=== PATIENT | female | born 1970 | race African-American/Black ===

== ENCOUNTER 2019-01-04 22:30 | Inpatient (IN) | payer BC ==
[~2019-01-04] VITALS: Ht 172.7 cm; Wt 73.0 kg
--- NOTE | 2019-01-04 23:00 | NUR ---
ED Nurse Note: Recieved pt from home, here ith c/o lower abdominal pain at 10/10 for past
--- NOTE | 2019-01-04 23:01 | NUR ---
ED Nurse Note: Recieved pt from home, here with c/o lower abdominal paina t 10 for past 3 days, pt has hx of endometriosis, also with nausea and vomiting and appetite changes, pt is lying in bed in like position due to pain, pt immediately gowned and palced on cardiac monitoring, iv line started and labs drawn, will resume care as ordered and closely monitor.
[2019-01-04] MEDS ORDERED: HYDROmorphone 1mg/ml Carpuject IVP ONE (23:15)
[2019-01-05] VITALS (10 sets, daily range): BP systolic 105–130; BP diastolic 69–82
[2019-01-05 00:28] LABS: HEMATOCRIT 25.8 % (37.0-47.0); HEMOGLOBIN 8.2 G/DL (12.0-16.0); MEAN CORPUSCULAR VOLUME 72 FL (80-99); PLATELET COUNT 370 K/UL (150-450); RED BLOOD COUNT 3.61 M/UL (4.20-5.40); RED CELL DISTRIBUTION WIDTH 19.2 % (11.6-14.8); WHITE BLOOD COUNT 18.4 K/UL (4.8-10.8)
[2019-01-05 00:32] LABS: ANION GAP 12 mmol/L (5-15); BLOOD UREA NITROGEN 12 mg/dL (7-18); CALCIUM 9.2 MG/DL (8.5-10.1); CARBON DIOXIDE 25 MMOL/L (21-32); CHLORIDE 100 MMOL/L (98-107); CREATININE 0.9 MG/DL (0.55-1.30); POTASSIUM 3.4 MMOL/L (3.5-5.1); SODIUM 137 MMOL/L (136-145)
--- NOTE | 2019-01-05 00:33 | Diagnostic Imaging Report ---
Indication: Abdominal pain Technique: Continuous helical transaxial imaging of the abdomen and pelvis was obtained from the lung bases to the pubic symphysis. No intravenous contrast was administered. Coronal 2-D reformats were also obtained. Automatic Exposure Control was utilized. Total Dose length Product (DLP): 623.[address] Dose Index Volume (CTDIvol): 12.54 mGy Comparison: none Findings: The lung bases are clear. Gallstones noted. There is no nephrolithiasis or hydronephrosis. Noncontrast solid organ evaluation, though limited is negative. There is a hiatal hernia. Bowel gas pattern is nonobstructive. Within the pelvis the uterus is markedly enlarged due to the presence of fibroids. There are nodular and curvilinear foci of air within the fibroids into primary locations one over the lower uterine segment and the other over the fundal region. Findings are consistent with recent uterine fibroid embolization. There is no evidence of extrauterine air or significant free fluid to suggest an intra-abdominal abscess. Metallic focus in the right adnexal region adjacent to the uterus noted, presumably thromboembolic coil. Correlate with the procedural history. The appendix is not definitely seen. There are no secondary signs of appendicitis. Bladder is nondistended. L4-5 degenerative disc disease with vacuum phenomenon and endplate osteophytes noted. Foraminal stenosis also demonstrated. L5 level is transitional and partially sacralized. IMPRESSION: Signs of recent uterine fibroid embolization as described above. No evidence of extrauterine free air or abscess. The study is inherently limited due to the nonadministration of intravenous and oral contrast material. Hiatal hernia. Gallstones Other incidental findings as above. [facility] has communicated the preliminary results to the Emergency Department. Their findings are largely concordant with this report. The CT scanner at [facility] is accredited by the [employer] and the scans are performed using dose optimization techniques as appropriate to a performed exam including Automatic Exposure control.
--- NOTE | 2019-01-05 01:00 | NUR ---
ED Nurse Note: Pt continues to rest quietly in bed, pain level decreased after meds and pt states is coming back gain, pt denies cp, no sob or labored breathing, pt is on menstural cycle, given pads and linen to clean with, pt ambulates well to bathroom, pt being admitted to hospital, will continue to closely monitor while waiting for pt room for admit, family members at bedside.
[2019-01-05] MEDS ORDERED: Piperacillin/Tazobactam 3.375 GM in NS 110 ML IVPB ONE (01:15)
[2019-01-05] MEDS ORDERED: QUETIAPINE FUM100 MG ORAL (01:22)
[2019-01-05] MEDS ORDERED: GABAPENTIN600 MG ORAL (01:22)
[2019-01-05] MEDS ORDERED: HYDROCHLOROTHIA25 MG ORAL (01:22)
[2019-01-05] MEDS ORDERED: CATAPRES0.1 MG ORAL (01:22)
--- NOTE | 2019-01-05 01:32 | Emergency Room Report ---
History of Present Illness General Chief Complaint: Abdominal Pain Source: Patient Present Illness HPI This is a 48-year-old female with a history of multiple large fibroid uterus. She presents with chief complaint of pelvic pain and vaginal discharge. She had embolization of her boys by Dr. Salgado a couple weeks ago. She was doing well until about a week ago when she started having increasing pain. Now pain is more severe with brownish discharge. She said is malodorous. She has subjective fever. Pain is 10 out of 10. Worse with movement. No urinary complaint. She was told to come in to be evaluated. Allergies: Coded Allergies: No Known Allergies (Unverified , 01/04/19) Patient History Past Medical History: see triage record, old chart reviewed Last Menstrual Period: 12/15/18 Now: No Nursing Documentation-[facility] Past Medical History: No History, Except For Hx Hypertension: Yes Review of Systems Constitutional: Reports: fever Eye: Denies: eye pain, blurred vision ENT: Denies: ear pain, nose congestion, throat swelling Respiratory: Denies: cough, shortness of breath Cardiovascular: Denies: chest pain, palpitations Gastrointestinal: Denies: abdominal pain, diarrhea, nausea, vomiting Genitourinary: Reports: pain Musculoskeletal: Denies: back pain, joint pain Skin: Denies: rash Neurological: Denies: headache, numbness Endocrine: Denies: increased thirst, increased urine Hematologic/Lymphatic: Denies: easy bruising All Other Systems: negative except mentioned in HPI Physical Exam Vital Signs Date Time Temp Pulse Resp B/P (MAP) Pulse Ox O2 Delivery O2 Flow Rate FiO2 01/04/19 22:38 99.1 95 15 125/85 (98) 98 Room Air vitals stable Sp02 EP Interpretation: reviewed, normal General Appearance: well appearing, no apparent distress, alert Head: normocephalic, atraumatic Eyes: bilateral eye PERRL, bilateral eye EOMI ENT: hearing grossly normal, normal pharynx Neck: full range of motion, supple, no meningismus Respiratory: chest non-tender, lungs clear, normal breath sounds Cardiovascular #1: regular rate, rhythm, no murmur Gastrointestinal: normal bowel sounds, non tender, no mass, no organomegaly, no bruit, non-distended Genitourinary: other - supraPubic tenderness Musculoskeletal: back normal, gait/station normal, normal range of motion Neurologic: alert, oriented x3 Psychiatric: mood/affect normal Medical Decision Making Diagnostic Impression: Primary Impression: Acute endometritis ER Course Patient has embolization of her fibroids and now with subjective fever and elevated white count. CT scan with possible necrotic tissue felinization versus infectious process. Antibiotics started. Patient pain is well controlled. I discussed the case with Dr. Salgado who will admit. Lab Results Impression Labs with leukocytosis CT/MRI/US Diagnostic Results CT/MRI/US Diagnostic Results : Imaging Test Ordered: CT abdomen and pelvis Impression Read by radiologist. Enlarged uterus. Multiple foci of fluid and air within the uterus. Last Vital Signs Date Time Temp Pulse Resp B/P (MAP) Pulse Ox O2 Delivery O2 Flow Rate FiO2 01/04/19 22:38 99.1 95 15 125/85 (98) 98 Room Air Status: improved Disposition: ADMITTED INPATIENT Condition: Serious Referrals: Agus Salgado MD (PCP) Bashir Graves MD Jan 05, 2019 01:32
--- NOTE | 2019-01-05 02:00 | NUR ---
ED Nurse Note: Pt now has room for admission, report called to nurse JEFF Sales on floor, pt in bed sleeping, recently medicated again for pain, meds effective, iv site intact and patent, no sob or labored breathing noted, belongings list completed with pt, pt is med-surg, being transported to unit via gurney with er-techlyndsay oted during pt transport to room.
[2019-01-05] MEDS ORDERED: HYDROmorphone 1mg/ml Carpuject IVP ONE (02:15)
[2019-01-05] MEDS ORDERED: Potassium Chloride 20 MEQ in Dextrose 5%/Lactated Ringer's 1,000 ML IV SCH (04:00)
[2019-01-05] MEDS ORDERED: D5LR IV SCH ×2 (04:15)
[2019-01-05] MEDS ORDERED: KCL IV SCH ×2 (04:15)
--- NOTE | 2019-01-05 05:00 | NUR ---
NURSE NOTES: Pt admitted to 3E via stretcher at approx 0445. Vital signs stable. Call light within reach and patient bed is in the lowest position. Pt is not distressed. Belongings accounted for with RN. Will continue to monitor.
[2019-01-05 07:24] LABS: HEMATOCRIT 24.8 % (37.0-47.0); HEMOGLOBIN 7.8 G/DL (12.0-16.0); MEAN CORPUSCULAR VOLUME 71 FL (80-99); PLATELET COUNT 373 K/UL (150-450); RED BLOOD COUNT 3.48 M/UL (4.20-5.40); RED CELL DISTRIBUTION WIDTH 18.5 % (11.6-14.8); WHITE BLOOD COUNT 16.6 K/UL (4.8-10.8)
--- NOTE | 2019-01-05 07:33 | NUR ---
NURSE NOTES: WALKING ROUNDS DONE WITH OUTGOING RN. PATIENT ASLEEP BUT AROUSABLE. QUESTIONS ANSWERED, NEEDS MET AT THIS TIME. DISCUSSED PLAN OF CARE FOR THE DAY.VERBALIZED UNDERSTANDING. DENIES PAIN AT THIS TIME. BED I =N LOWEST POSITION, CALL LIGHT WITHIN REACH.
[2019-01-05 07:38] LABS: ALANINE AMINOTRANSFERASE 34 U/L (12-78); ALBUMIN 2.6 G/DL (3.4-5.0); ALBUMIN/GLOBULIN RATIO 0.6 (1.0-2.7); ALKALINE PHOSPHATASE 238 U/L (46-116); ANION GAP 10 mmol/L (5-15); ASPARTATE AMINO TRANSFERASE 32 U/L (15-37); BILIRUBIN,TOTAL 0.5 MG/DL (0.2-1.0); BLOOD UREA NITROGEN 8 mg/dL (7-18); CALCIUM 8.9 MG/DL (8.5-10.1); CARBON DIOXIDE 26 MMOL/L (21-32); CHLORIDE 99 MMOL/L (98-107); CREATININE 0.9 MG/DL (0.55-1.30); POTASSIUM 2.9 MMOL/L (3.5-5.1); SODIUM 135 MMOL/L (136-145)
--- NOTE | 2019-01-05 07:42 | NUR ---
HAND-OFF: Report given to JEFF Hogan.
--- NOTE | 2019-01-05 08:30 | NUR ---
NURSE NOTES: PLACED CALL TO DR. ESTEVES TO REPORT LABS AND FEVER. TEMP 101.9-ORAL/ H/H/ 7.8/24.8/K LEVEL 2.9. NEW ORDERS RECEIVED. PATIENT KEPT INFORMED.
[2019-01-05] MEDS: Piperacillin/Tazobactam 3.375 GM in NS 110 ML IVPB SCH ×2 (09:15→18:03)
[2019-01-05] MEDS: Potassium Chloride 40 MEQ in Dextrose 5%/Lactated Ringer's 1,000 ML IV SCH ×2 (09:15→17:17)
--- NOTE | 2019-01-05 09:30 | NUR ---
NURSE NOTES: ADMINISTERED TYLENOL 650 MG PO. RE-ASSESSED TEMP 99.6 ORALLY. PATIENT SEEN BY DR. HANSON AND DR. BEAR ADDITIONAL ORDERS RECEIVED.
[2019-01-05] MEDS ORDERED: Tylenol #3 tab (300mg/30mg) ORAL PRN (10:15)
--- NOTE | 2019-01-05 11:29 | NUR ---
*-* NO INSURANCE INFORMATION IN THE BAR UNABLE TOSEND CLINICALS OR REVIEWS *-*
--- NOTE | 2019-01-05 11:30 | NUR ---
NURSE NOTES: RECEIVED CALL FROM BLOOD BANK THAT BLOOD IS READY. PATIENT HAS ONE IV ACCESS TO RIGHT IJ; HARD STICK. ONCE ANTIBIOTIC IS DONE WILL ADMINISTER PRBCS ORDERED. PATIENT AWARE.
--- NOTE | 2019-01-05 13:45 | NUR ---
NURSE NOTES: PATIENT TOLERATING PRBC BLOOD TRANSFUSION. VSS.AFEBRILE. WILL CONTINUE TO MONITOR.
--- NOTE | 2019-01-05 14:07 | Consultation ---
History of Present Illness General Date patient seen: Jan 05, 2019 Reason for Hospitalization: Abdominal Pain Present Illness HPI This is a very pleasant 48-year-old female who presented to [facility] emergency department complaining of worsening pelvic and lower abdominal pain. Patient recently had a uterine embolization by Dr. Agus Salgado and was doing well but began to have worsening pain vaginal discharge. Patient identified in the emerge department to have abdominal tenderness, leukocytosis, fevers. Patient was admitted for work-up care and management. Surgery was called to evaluate for abdominal pain. CT scan identified hiatal hernia leukocytosis as well. Patient seen, patient evaluate, chart reviewed. Patient currently denies any nausea vomiting. States she feels febrile and has cramping lower abdominal and pelvic pain. Allergies: Coded Allergies: No Known Allergies (Unverified , 01/04/19) Medication History Scheduled Clonidine Hcl* (Catapres*), 0.3 MG ORAL HS, (Reported) Gabapentin* (Gabapentin*), Unknown Dose ORAL THREE TIMES A DAY, (Reported) Hydrochlorothiazide* (Hydrochlorothiazide*), Unknown Dose ORAL DAILY, (Reported) Quetiapine Fumarate* (Seroquel*), 100 MG ORAL HS, (Reported) Patient History History Provided By: Patient, Medical Record, PMD Healthcare decision maker Resuscitation status Full Code Advanced Directive on File Past Medical/Surgical History Past Medical/Surgical History: (1) Abdominal pain (2) Fever (3) Leukocytosis (4) Acute endometritis Review of Systems Review of Symptoms General ROS: no weight loss or fever Psychological ROS: no depression or mood changes, no memory loss Ophthalmic ROS: no visual changes or eye irritation ENT ROS: no nasal congestion, hearing loss, dizziness Allergy and Immunology ROS: no allergic symptoms or urticaria Hematological and Lymphatic ROS: no swollen glands, unusual bleeding or bruising Endocrine ROS: no polyuria, polydipsia, weight changes, temperature intolerance Respiratory ROS: no cough, shortness of breath, or wheezing Cardiovascular ROS: no chest pain or dyspnea on exertion Gastrointestinal ROS: abdominal pain, no bright red blood in stool. Musculoskeletal ROS: no myalgias or arthralgias Neurological ROS: no TIA or stroke symptoms Dermatological ROS: no new or changing skin lesions, rashes or pruritis Physical Exam Physical Exam General appearance: alert, cooperative, no distress, appears stated age Head: Normocephalic, without obvious abnormality, atraumatic Eyes: conjunctivae/corneas clear. PERRL, EOM's intact. Fundi benign Throat: Lips, mucosa, and tongue normal. Teeth and gums normal Neck: supple, symmetrical, trachea midline, no adenopathy, thyroid: not enlarged, symmetric, no tenderness/mass/nodules, no carotid bruit and no JVD Lungs: clear to auscultation bilaterally Heart: regular rate and rhythm, S1, S2 normal, no murmur, click, rub or gallop Abdomen: soft, tender. Bowel sounds normal. mass, no organomegaly Extremities: extremities normal, atraumatic, no cyanosis or edema Pulses: 2+ and symmetric Skin: Skin color, texture, turgor normal. No rashes or lesions Neurologic: Grossly normal Last 24 Hour Vital Signs Date Time Temp Pulse Resp B/P (MAP) Pulse Ox O2 Delivery O2 Flow Rate FiO2 01/05/19 11:36 98.6 74 16 126/69 (88) 99 01/05/19 10:39 99.6 01/05/19 09:12 99.6 01/05/19 09:00 Room Air 01/05/19 08:00 101.9 90 17 117/75 (89) 98 01/05/19 05:27 Room Air 01/05/19 04:55 99.6 86 16 113/76 (88) 95 01/05/19 04:00 98.8 84 18 115/70 98 Room Air 01/05/19 03:30 98.8 88 18 129/74 98 Room Air 01/05/19 00:30 98.8 88 18 129/74 98 Room Air 01/04/19 23:00 95 15 Room Air 01/04/19 22:38 99.1 95 15 125/85 (98) 98 Room Air Laboratory Tests Test 01/05/19 00:20 01/05/19 06:40 White Blood Count 18.4 K/UL (4.8-10.8) H 16.6 K/UL (4.8-10.8) H Red Blood Count 3.61 M/UL (4.20-5.40) L 3.48 M/UL (4.20-5.40) L Hemoglobin 8.2 G/DL (12.0-16.0) L 7.8 G/DL (12.0-16.0) L Hematocrit 25.8 % (37.0-47.0) L 24.8 % (37.0-47.0) L Mean Corpuscular Volume 72 FL (80-99) L 71 FL (80-99) L Mean Corpuscular Hemoglobin 22.7 PG (27.0-31.0) L 22.5 PG (27.0-31.0) L Mean Corpuscular Hemoglobin Concent 31.7 G/DL (32.0-36.0) L 31.5 G/DL (32.0-36.0) L Red Cell Distribution Width 19.2 % (11.6-14.8) H 18.5 % (11.6-14.8) H Platelet Count 370 K/UL (150-450) 373 K/UL (150-450) Mean Platelet Volume 5.5 FL (6.5-10.1) L 5.4 FL (6.5-10.1) L Neutrophils (%) (Auto) % (45.0-75.0) % (45.0-75.0) Lymphocytes (%) (Auto) % (20.0-45.0) % (20.0-45.0) Monocytes (%) (Auto) % (1.0-10.0) % (1.0-10.0) Eosinophils (%) (Auto) % (0.0-3.0) % (0.0-3.0) Basophils (%) (Auto) % (0.0-2.0) % (0.0-2.0) Differential Total Cells Counted 100 100 Neutrophils % (Manual) 82 % (45-75) H 85 % (45-75) H Lymphocytes % (Manual) 9 % (20-45) L 6 % (20-45) L Monocytes % (Manual) 9 % (1-10) 9 % (1-10) Eosinophils % (Manual) 0 % (0-3) 0 % (0-3) Basophils % (Manual) 0 % (0-2) 0 % (0-2) Band Neutrophils 0 % (0-8) 0 % (0-8) Platelet Estimate Adequate Adequate Platelet Morphology Normal Normal Red Blood Cell Morphology Normal Hypochromasia 1+ Anisocytosis 1+ Sodium Level 135 MMOL/L (136-145) L Potassium Level 2.9 MMOL/L (3.5-5.1) L Chloride Level 99 MMOL/L (98-107) Carbon Dioxide Level 26 MMOL/L (21-32) Anion Gap 10 mmol/L (5-15) Blood Urea Nitrogen 8 mg/dL (7-18) Creatinine 0.9 MG/DL (0.55-1.30) Estimat Glomerular Filtration Rate > 60 mL/min (>60) Glucose Level 90 MG/DL (74-106) Calcium Level 8.9 MG/DL (8.5-10.1) Total Bilirubin 0.5 MG/DL (0.2-1.0) Aspartate Amino Transf (AST/SGOT) 32 U/L (15-37) Alanine Aminotransferase (ALT/SGPT) 34 U/L (12-78) Alkaline Phosphatase 238 U/L (46-116) H Total Protein 7.3 G/DL (6.4-8.2) Albumin 2.6 G/DL (3.4-5.0) L Globulin 4.7 g/dL Albumin/Globulin Ratio 0.6 (1.0-2.7) L Height (Feet): 5 Height (Inches): 8.00 Weight (Pounds): 161 Medications Current Medications Medications (Trade) Dose Ordered Sig/Fuad Route PRN Reason Start Time Stop Time Status Last Admin Dose Admin Acetaminophen (Tylenol) 650 mg Q4H PRN ORAL Mild Pain/Temp > 100.5 01/05/19 04:00 02/04/19 03:59 01/05/19 08:42 Acetaminophen/ Codeine Phosphate (Tylenol #3) 1 tab Q3H PRN ORAL Moderate Pain (Pain Scale 4-6) 01/05/19 10:15 01/12/19 10:14 Hydromorphone HCl (Dilaudid) 2 mg Q3H PRN IVP For Pain 01/05/19 04:00 01/12/19 03:59 01/05/19 10:09 Iron Sucrose 100 mg/Sodium Chloride 60 ml @ 240 mls/hr BEDTIME IV 01/06/19 21:00 01/10/19 21:14 Ondansetron HCl (Zofran) 4 mg Q6H PRN IVP Nausea & Vomiting 01/05/19 04:00 02/04/19 03:59 01/05/19 13:41 Piperacillin Sod/ Tazobactam Sod 3.375 gm/Sodium Chloride 110 ml @ 27.5 mls/hr Q8H IVPB 01/05/19 08:00 01/12/19 07:59 01/05/19 09:15 Potassium Chloride 40 meq/ Dextrose/Lactated Ringer's 1,020 ml @ 120 mls/hr Q8H30M IV 01/05/19 09:00 02/04/19 08:59 01/05/19 09:15 Assessment/Plan Problem List: (1) Acute endometritis ICD Codes: N71.0 - Acute inflammatory disease of uterus SNOMED: 64772844 (2) Fever ICD Codes: R50.9 - Fever, unspecified SNOMED: 207806318 (3) Leukocytosis ICD Codes: D72.829 - Elevated white blood cell count, unspecified SNOMED: 555523827, 966490513 (4) Abdominal pain Assessment & Plan: This is a 48-year-old female with abdominal pain, leukocytosis, febrile, anemia, CT scan as below. Likely etiology is her uterus. Will discuss with Dr. Salgado potential interventions. For now will need to be n.p.o. with IV fluids, IV antibiotics. Trend labs. We will follow with serial abdominal examinations. I do not believe a higher hernia or the gallstones are potential etiology for her pain. Furthermore she does not seem to have an obstruction or any acute general surgery findings. But will need to follow with examinations. Rx is written. Thank you for this consultation we will follow with recommendations ICD Codes: R10.9 - Unspecified abdominal pain SNOMED: [id number] Jaden Moore Jan 05, 2019 14:07
--- NOTE | 2019-01-05 16:35 | NUR ---
CASE MANAGEMENT:REVIEW 48 YR OLD FEMALE PRESENTED TO ER CC: ABDOMINAL PAIN, CHILLS, N/V X3 DAYS PMH:FIBROID REMOVED 12/15/18 SI: ACUTE ENDOMETRITIS 99.2 95 15 125/85 98% ON RA WBC+18.4 H/H-8.2/25.8 K-3.4 IS: IV ZOFRAN IV DILAUDID X2 1L NS BOLUS IV ZOSYN CT ABD/PELVIS : TO MED/SURG UNIT 3 [facility] [email or web address]] 01/05/19 SI: T~101.9 WBC+16.6 H/H-7.8/24.8 K-2.9 IS: TRANSFUSE 1 UNIT PRBC'S IV VENOFER QHS IV ZOSYN Q8HRS IVF+KCL@120/HR IV DILAUDID Q3HRS PRN : MED/SURG STATUS 3 PLAN: CONSENT FOR POSSIBLE APPENDECTOMY INTERQUAL CRITERIA MET
--- NOTE | 2019-01-05 16:55 | NUR ---
NURSE NOTES: 1st UNIT OF PRBCS COMPLETED. VSS AFEBRILE. WILL BEGAN 2ND UNIT ONCE PICKED UP FROM BLOOD BANK.
--- NOTE | 2019-01-05 17:08 | General Surgery Progress Note ---
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 myoma clinically Chief Complaint: fever, discharge Symptoms: worse, voiding well, passing flatus Objective Last 24 Hour Vital Signs Date Time Temp Pulse Resp B/P (MAP) Pulse Ox O2 Delivery O2 Flow Rate FiO2 01/05/19 11:36 98.6 74 16 126/69 (88) 99 01/05/19 10:39 99.6 01/05/19 09:12 99.6 01/05/19 09:00 Room Air 01/05/19 08:00 101.9 90 17 117/75 (89) 98 01/05/19 05:27 Room Air 01/05/19 04:55 99.6 86 16 113/76 (88) 95 01/05/19 04:00 98.8 84 18 115/70 98 Room Air 01/05/19 03:30 98.8 88 18 129/74 98 Room Air 01/05/19 00:30 98.8 88 18 129/74 98 Room Air 01/04/19 23:00 95 15 Room Air 01/04/19 22:38 99.1 95 15 125/85 (98) 98 Room Air I&O Intake and Output 01/04/19 01/05/19 18:59 06:59 # Voids 2 Dressing: dry Wound: clean Drains: none Cardiovascular: RSR Respiratory: clear Abdomen: soft, flat, scaphoid, tenderness Extremities: no edema, no tenderness, no cyanosis Laboratory Tests Test 01/05/19 00:20 01/05/19 06:40 White Blood Count 18.4 K/UL (4.8-10.8) H 16.6 K/UL (4.8-10.8) H Red Blood Count 3.61 M/UL (4.20-5.40) L 3.48 M/UL (4.20-5.40) L Hemoglobin 8.2 G/DL (12.0-16.0) L 7.8 G/DL (12.0-16.0) L Hematocrit 25.8 % (37.0-47.0) L 24.8 % (37.0-47.0) L Mean Corpuscular Volume 72 FL (80-99) L 71 FL (80-99) L Mean Corpuscular Hemoglobin 22.7 PG (27.0-31.0) L 22.5 PG (27.0-31.0) L Mean Corpuscular Hemoglobin Concent 31.7 G/DL (32.0-36.0) L 31.5 G/DL (32.0-36.0) L Red Cell Distribution Width 19.2 % (11.6-14.8) H 18.5 % (11.6-14.8) H Platelet Count 370 K/UL (150-450) 373 K/UL (150-450) Mean Platelet Volume 5.5 FL (6.5-10.1) L 5.4 FL (6.5-10.1) L Neutrophils (%) (Auto) % (45.0-75.0) % (45.0-75.0) Lymphocytes (%) (Auto) % (20.0-45.0) % (20.0-45.0) Monocytes (%) (Auto) % (1.0-10.0) % (1.0-10.0) Eosinophils (%) (Auto) % (0.0-3.0) % (0.0-3.0) Basophils (%) (Auto) % (0.0-2.0) % (0.0-2.0) Differential Total Cells Counted 100 100 Neutrophils % (Manual) 82 % (45-75) H 85 % (45-75) H Lymphocytes % (Manual) 9 % (20-45) L 6 % (20-45) L Monocytes % (Manual) 9 % (1-10) 9 % (1-10) Eosinophils % (Manual) 0 % (0-3) 0 % (0-3) Basophils % (Manual) 0 % (0-2) 0 % (0-2) Band Neutrophils 0 % (0-8) 0 % (0-8) Platelet Estimate Adequate Adequate Platelet Morphology Normal Normal Red Blood Cell Morphology Normal Hypochromasia 1+ Anisocytosis 1+ Sodium Level 135 MMOL/L (136-145) L Potassium Level 2.9 MMOL/L (3.5-5.1) L Chloride Level 99 MMOL/L (98-107) Carbon Dioxide Level 26 MMOL/L (21-32) Anion Gap 10 mmol/L (5-15) Blood Urea Nitrogen 8 mg/dL (7-18) Creatinine 0.9 MG/DL (0.55-1.30) Estimat Glomerular Filtration Rate > 60 mL/min (>60) Glucose Level 90 MG/DL (74-106) Calcium Level 8.9 MG/DL (8.5-10.1) Total Bilirubin 0.5 MG/DL (0.2-1.0) Aspartate Amino Transf (AST/SGOT) 32 U/L (15-37) Alanine Aminotransferase (ALT/SGPT) 34 U/L (12-78) Alkaline Phosphatase 238 U/L (46-116) H Total Protein 7.3 G/DL (6.4-8.2) Albumin 2.6 G/DL (3.4-5.0) L Globulin 4.7 g/dL Albumin/Globulin Ratio 0.6 (1.0-2.7) L Imaging cannot view CT scan remotely, but consistent in report with prolapsing myoma Additional Comments no evidence of sepsis, clinically. Assessment Additional Comments options discussed extensively with patient. desires hysterectomy, BSO, possible appendectomy. Plan Additional Comments anemia, will transfuse two units PRBC, correct potassium, antibiotic therapy x 48 hours. scheduled for hysterectomy january 07. Agus Salgado MD Jan 05, 2019 17:08
--- NOTE | 2019-01-05 17:44 | NUR ---
NURSE NOTES: NOTED PRE- VITAL TEMP OF 103.0 PATIENT DENIES BEING WARM. NO CHILLS NOTED. NOTIFIED BLOODBANK AND BLOOD RETURNED. DR. ESTEVES AND DR. HANSON OF FEVER. NEW ORDERS RECEIVED.
--- NOTE | 2019-01-05 17:50 | NUR ---
NURSE NOTES: COOLING MEASURE STARTED, ROOM COOLED, COLD TOWEL TO FOREHEAD. PLACED COOLING BLANKET ONTO PATIENT. TYLENOL TO SOON TO GIVE; PRIMARY MD AND PATIENT AWARE. WILL RE-ASSESS TEMP.
--- NOTE | 2019-01-05 19:15 | NUR ---
NURSE NOTES: COOLING BLANKET APPLIED ORDERED. RE-ASSESSED TEMP 102.9 ORALLY. PATIENT DENIES FEELING FEVERISH. SKIN SLIGHTLY WARM TO TOUCH. RE-CONFIRMED TEMP READING WITH ANOTHER VITAL MACHINE. TEMP 103.O ORALLY. COOLING BLANKET ALARMING DUE TO RECTAL TUBE NEEDING TO BE APPLIED. PLACED CALL TO [facility], WILL PROCEED WITH OTHER COOLING MEASURES PLACING ICE PACKS TO BILATERAL AXILLA, GROIN AND TO NECK. ENDORSED TO NIGHT RN AND YARD OPERATOR.
--- NOTE | 2019-01-05 19:30 | NUR ---
NURSE NOTES:patient Re assessed vital sign Temp elevated 102.6 P 97 /min. R 18 MIN. 130/ 77 mmHg spo2 97 % . continuous cooling measures applied per MD orders. will continue to monitor .
--- NOTE | 2019-01-05 19:43 | NUR ---
NURSE NOTES:Patient received from KALEE Alba Patient in bed A/AOX4. Patient vital sign Temperature elevated 102.7 P 96/ min . R 17/ min. B/P 125/ 82 mmHg spo2 97% Tylenol 650 MG PO given . Ice pack applied to neck, axilla and groin For cooling measures . PERCY padron#18 [id number] WITH 40 MEQ. at 100 CC/HR. infusing well . call light within reach bed in low position at all times will continue to monitor .
--- NOTE | 2019-01-05 19:43 | NUR ---
HAND-OFF: Report given to PRAFUL MEJIA LVN.
--- NOTE | 2019-01-05 20:51 | NUR ---
NURSE NOTES:Patient c/o abdominal pain at 20:51 pm and n/v . Pain rates 7 out of 10 . Dilaudid 2 mg IVP and 20:57 pm Zofran 4 mg IVP for nausea given by Reuben OVIEDO and Re assessed after 30 min. with good relief . patient resting comfortably .
--- NOTE | 2019-01-05 22:15 | NUR ---
NURSE NOTES:Pre transfusion patient Vital sign re assess Temp 100.0 P 93/min. R18/min. B/P 113/ 77 mmhg Spo2 96 % per continuous cooling measures applied to neck, axilla and groin per Dr. Salazar hold transfusion until Temp is 101.0 . Patient Temp re assess T100.0 2nd unit of PRBCs blood transfusion started and 15 min. after start vital sign T99.8 P89/MIN. R18/ MIN. B/P 105/ 70 mm hg spo2 96% will continue to monitor .
[2019-01-06] VITALS (7 sets, daily range): BP systolic 102–133; BP diastolic 69–90
[2019-01-06] MEDS: Potassium Chloride 40 MEQ in Dextrose 5%/Lactated Ringer's 1,000 ML IV SCH ×3 (02:04→15:25)
--- NOTE | 2019-01-06 02:10 | NUR ---
NURSE NOTES:Patient 2nd unit of PRBCs completed at 02:10 am vital sign T 99.0 P 99/ MIN. R 18/MIN B/P 112/ 70 mmhg spo2 96% Without Adverse transfusion reaction observed . no fever, no severe shaking chills, no severe low back pain no chest pain , no nausea and no dyspnea call laboratory for CBC Post blood transfusion and spoke to Dilcia (greenskeeper laborer ) and stated coming up one hour after . Will continue to monitor . Addendum: 01/06/19 at 0604 by PRAFUL MEJIA LVN Patient on cooling blanket in placed
[2019-01-06] MEDS: Piperacillin/Tazobactam 3.375 GM in NS 110 ML IVPB SCH ×3 (02:19→18:05)
[2019-01-06 05:14] LABS: HEMATOCRIT 30.6 % (37.0-47.0); HEMOGLOBIN 9.9 G/DL (12.0-16.0); MEAN CORPUSCULAR VOLUME 75 FL (80-99); PLATELET COUNT 317 K/UL (150-450); RED BLOOD COUNT 4.07 M/UL (4.20-5.40); WHITE BLOOD COUNT 21.8 K/UL (4.8-10.8)
[2019-01-06 05:45] LABS: ALANINE AMINOTRANSFERASE 31 U/L (12-78); ALBUMIN 2.2 G/DL (3.4-5.0); ALBUMIN/GLOBULIN RATIO 0.5 (1.0-2.7); ALKALINE PHOSPHATASE 243 U/L (46-116); ANION GAP 9 mmol/L (5-15); BILIRUBIN,TOTAL 1.1 MG/DL (0.2-1.0); BLOOD UREA NITROGEN 5 mg/dL (7-18); CALCIUM 8.8 MG/DL (8.5-10.1); CARBON DIOXIDE 27 MMOL/L (21-32); CHLORIDE 100 MMOL/L (98-107); CREATININE 0.8 MG/DL (0.55-1.30); POTASSIUM 3.4 MMOL/L (3.5-5.1); SODIUM 136 MMOL/L (136-145)
[2019-01-06 06:27] LABS: ASPARTATE AMINO TRANSFERASE 30 U/L (15-37); BILIRUBIN,DIRECT 0.5 MG/DL (0.0-0.3)
--- NOTE | 2019-01-06 06:50 | NUR ---
NURSE NOTES:CALL [facility] Patient WBC 21.8 , Hgb 9.[address] 30.6 Patient Temp 100.2 . no new orders given. endorsed to KALEE Alba
--- NOTE | 2019-01-06 07:15 | NUR ---
NURSE NOTES: WALKING ROUNDS DONE WITH OUTGOING RN PATIENT IN BED WITH COOLING BLANKET IN PLACE. NEEDS MET,QUESTIONS ANSWERED.DISCUSSED PLAN OF CARE FOR THE DAY. VERBALIZED UNDERSTANDING. WILL CONTINUE TO MONITOR FOR FEVER.BED IN LOW AND LOCKED POSITION. CALL LIGHT WITHIN REACH.
--- NOTE | 2019-01-06 07:25 | NUR ---
HAND-OFF: Report given to Bess Alba
--- NOTE | 2019-01-06 07:28 | NUR ---
HAND-OFF: Report given to KALEE Alba
--- NOTE | 2019-01-06 07:29 | History & Physical ---
History and Physical History & Physicial dict transfuse abx prob hysterectomy Ross Salazar MD Jan 06, 2019 07:29
--- NOTE | 2019-01-06 08:58 | NUR ---
RADIOLOGY DEPT., CHEST X-RAY DONE.-P.DYE
[2019-01-06 09:03] LABS: INR 1.1 (0.9-1.1)
--- NOTE | 2019-01-06 10:30 | History and Physical Report ---
DATE OF ADMISSION: 01/05/2019 HISTORY OF PRESENT ILLNESS: The patient is a 48-year-old woman s/p embolization of uterine fibroids, which was done on 12/15/2018. Since that time, the patient has had pain and developed increasing fever and discharge from the vagina. She is admitted now for antibiotics and possible hysterectomy. 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 She has hypertension which is controlled. She has some anxiety and arthritis. SOCIAL HISTORY: She has a history of cigarette smoking, but quit in the past. She drinks occasionally and smokes marijuana. FAMILY HISTORY: Noted for cancer in father and chronic hepatitis in the mother. ALLERGIES: None. MEDICATIONS: Amlodipine, carvedilol, clonidine, gabapentin, hydrochlorothiazide, and Seroquel. REVIEW OF SYSTEMS: Otherwise unremarkable. PHYSICAL EXAMINATION: GENERAL: The patient is alert and responds appropriately. VITAL SIGNS: Temperature 101.5 fever. HEENT: Normocephalic. NECK: No jugular venous distention. CHEST: Clear. CARDIAC: Rhythm is regular. ABDOMEN: Soft with some suprapubic tenderness. EXTREMITIES: No clubbing, cyanosis, or edema. LABORATORY STUDIES: Notable for anemia with hemoglobin down to 7.8. White count is elevated at 18,000. Chemistry shows low potassium. Liver enzymes are still slightly elevated. IMPRESSION: 1. Sepsis due to pelvic infection. 2. Status post uterine artery embolization for leiomyoma uteri. 3. Hypertension, controlled. 4. Anemia. 5. Hypokalemia. 6. History of stroke. PLAN: The patient will be cultured and placed on appropriate antibiotics. Blood transfusion will be ordered. She likely will require hysterectomy. The case was discussed with Dr. Salgado in detail. Meet Salazar M.D. DR: Barbara JOB#: [id number] CC: Agus Salgado M.D.; Fax#: [phone] MEET SALAZAR M.D. ; FAX#: [phone] [facility] [place] [facility]
--- NOTE | 2019-01-06 11:15 | Diagnostic Imaging Report ---
Indication: Dyspnea Comparison: None A single view chest radiograph was obtained. Findings: Left costophrenic angle is slightly obscured which could be artifactual or due to mild underlying atelectasis. Heart size is normal. Bones are unremarkable. IMPRESSION: No acute disease. Left lung base obscured
--- NOTE | 2019-01-06 12:55 | General Progress Note ---
Assessment/Plan Assessment/Plan: 1. Sepsis due to pelvic infection. 2. Status post uterine artery embolization for leiomyoma uteri. 3. Hypertension, controlled. 4. Anemia. 5. Hypokalemia. 6. History of stroke. WBC high hysterectomy planned tomorrow K replaced CXR clear OK for surgery Subjective Constitutional: Reports: weakness Genitourinary: Reports: other - vaginal dc Allergies: Coded Allergies: No Known Allergies (Unverified , 01/04/19) Objective Last 24 Hour Vital Signs Date Time Temp Pulse Resp B/P (MAP) Pulse Ox O2 Delivery O2 Flow Rate FiO2 01/06/19 12:00 98.5 85 16 133/90 (104) 98 01/06/19 09:09 99.1 01/06/19 09:00 Room Air 01/06/19 08:00 99.1 78 18 123/79 (94) 97 01/06/19 06:25 101.7 01/06/19 04:00 100.8 99 17 102/70 (81) 98 01/06/19 02:10 99.4 99 18 112/70 (84) 96 01/06/19 00:00 99.4 87 18 108/69 (82) 97 01/05/19 22:50 99.8 89 18 105/70 (82) 96 01/05/19 22:35 100.0 93 18 113/77 (89) 96 01/05/19 21:00 Room Air 01/05/19 20:30 102.6 97 18 130/77 (94) 97 01/05/19 20:00 102.7 96 18 125/82 (96) 97 01/05/19 17:44 103.0 01/05/19 16:00 98.3 97 16 129/74 (92) 99 Intake and Output 01/05/19 01/06/19 19:00 07:00 Intake Total 470.0 ml 590.0 ml Balance 470.0 ml 590.0 ml Intake IV Total 470.0 ml 590.0 ml # Voids 8 # Bowel Movements 1 Laboratory Tests 01/06/19 04:50: White Blood Count 21.8H, Red Blood Count 4.07L, Hemoglobin 9.9L, Hematocrit 30.6L, Mean Corpuscular Volume 75L, Mean Corpuscular Hemoglobin 24.4L, Mean Corpuscular Hemoglobin Concent 32.5, Red Cell Distribution Width 19.0H, Platelet Count 317, Mean Platelet Volume 5.0L, Neutrophils (%) (Auto) , Lymphocytes (%) (Auto) , Monocytes (%) (Auto) , Eosinophils (%) (Auto) , Basophils (%) (Auto) , Differential Total Cells Counted 100, Neutrophils % ( Manual) 85H, Lymphocytes % (Manual) 8L, Monocytes % (Manual) 7, Eosinophils % ( Manual) 0, Basophils % (Manual) 0, Band Neutrophils 0, Platelet Estimate Adequate, Platelet Morphology Normal, Hypochromasia 2+, Anisocytosis 2+, Microcytosis 1+, Sodium Level 136, Potassium Level 3.4L, Chloride Level 100, Carbon Dioxide Level 27, Anion Gap 9, Blood Urea Nitrogen 5L, Creatinine 0.8, Estimat Glomerular Filtration Rate > 60, Glucose Level 135H, Calcium Level 8.8, Total Bilirubin 1.1H, Direct Bilirubin 0.5H, Aspartate Amino Transf (AST/SGOT) 30, Alanine Aminotransferase (ALT/SGPT) 31, Alkaline Phosphatase 243H, Total Protein 6.9, Albumin 2.2L, Globulin 4.7, Albumin/Globulin Ratio 0.5L 01/06/19 08:45: Prothrombin Time 12.0H, Prothromb Time International Ratio 1.1, Activated Partial Thromboplast Time 32 Height (Feet): 5 Height (Inches): 8.00 Weight (Pounds): 161 General Appearance: no apparent distress Neck: non-tender Cardiovascular: normal rate Respiratory/Chest: lungs clear Abdomen: non tender, soft Ross Salazar MD Jan 06, 2019 12:55
--- NOTE | 2019-01-06 13:24 | NUR ---
CASE MANAGEMENT:REVIEW 01/06/19 SI: SEPSIS D/T PELVIC INFECTION HTN. ANEMIA 98.5 85 16 133/90 98% ON RA WBC+21.8 H/H-9.9/30.6 K-3.4 IS: IV VENOFER QHS IV ZOSYN Q8HRS IVF+KCL @120/HR IV DILAUDID Q3HRS PRN : MED/SURG STATUS 3 EAST DCP: FROM HOME PLAN: HYSTERECTOMY PLANNED FOR TOMORROW
--- NOTE | 2019-01-06 13:30 | NUR ---
NURSE NOTES: SPOKE TO ADRIEN IN BLOOD BANK TO CONFIRM 2 UNITS OF PRBCS TO BE READY FOR SURGERY ON 01/07/19. PER ADRIEN, BLOOD WILL BE READY FOR PATIENT'S SURGERY TOMORROW.
--- NOTE | 2019-01-06 15:28 | Surgery Progress Note ---
Surgery Progress Note Subjective Symptoms: pain same, tolerating diet, voiding well, passing flatus Objective Last 24 Hour Vital Signs Date Time Temp Pulse Resp B/P (MAP) Pulse Ox O2 Delivery O2 Flow Rate FiO2 01/06/19 13:04 98.5 01/06/19 12:00 98.5 85 16 133/90 (104) 98 01/06/19 09:00 Room Air 01/06/19 08:00 99.1 78 18 123/79 (94) 97 01/06/19 06:25 101.7 01/06/19 04:00 100.8 99 17 102/70 (81) 98 01/06/19 02:10 99.4 99 18 112/70 (84) 96 01/06/19 00:00 99.4 87 18 108/69 (82) 97 01/05/19 22:50 99.8 89 18 105/70 (82) 96 01/05/19 22:35 100.0 93 18 113/77 (89) 96 01/05/19 21:00 Room Air 01/05/19 20:30 102.6 97 18 130/77 (94) 97 01/05/19 20:00 102.7 96 18 125/82 (96) 97 01/05/19 17:44 103.0 01/05/19 16:00 98.3 97 16 129/74 (92) 99 I&O Intake and Output 01/05/19 01/06/19 19:00 07:00 Intake Total 470.0 ml 590.0 ml Balance 470.0 ml 590.0 ml Intake IV Total 470.0 ml 590.0 ml # Voids 8 # Bowel Movements 1 Cardiovascular: RSR Respiratory: clear Abdomen: soft, distended, tenderness, present bowel sounds, other Extremities: no edema, no tenderness, no cyanosis Laboratory Tests Test 01/06/19 04:50 01/06/19 08:45 White Blood Count 21.8 K/UL (4.8-10.8) H Red Blood Count 4.07 M/UL (4.20-5.40) L Hemoglobin 9.9 G/DL (12.0-16.0) L Hematocrit 30.6 % (37.0-47.0) L Mean Corpuscular Volume 75 FL (80-99) L Mean Corpuscular Hemoglobin 24.4 PG (27.0-31.0) L Mean Corpuscular Hemoglobin Concent 32.5 G/DL (32.0-36.0) Red Cell Distribution Width 19.0 % (11.6-14.8) H Platelet Count 317 K/UL (150-450) Mean Platelet Volume 5.0 FL (6.5-10.1) L Neutrophils (%) (Auto) % (45.0-75.0) Lymphocytes (%) (Auto) % (20.0-45.0) Monocytes (%) (Auto) % (1.0-10.0) Eosinophils (%) (Auto) % (0.0-3.0) Basophils (%) (Auto) % (0.0-2.0) Differential Total Cells Counted 100 Neutrophils % (Manual) 85 % (45-75) H Lymphocytes % (Manual) 8 % (20-45) L Monocytes % (Manual) 7 % (1-10) Eosinophils % (Manual) 0 % (0-3) Basophils % (Manual) 0 % (0-2) Band Neutrophils 0 % (0-8) Platelet Estimate Adequate Platelet Morphology Normal Hypochromasia 2+ Anisocytosis 2+ Microcytosis 1+ Sodium Level 136 MMOL/L (136-145) Potassium Level 3.4 MMOL/L (3.5-5.1) L Chloride Level 100 MMOL/L (98-107) Carbon Dioxide Level 27 MMOL/L (21-32) Anion Gap 9 mmol/L (5-15) Blood Urea Nitrogen 5 mg/dL (7-18) L Creatinine 0.8 MG/DL (0.55-1.30) Estimat Glomerular Filtration Rate > 60 mL/min (>60) Glucose Level 135 MG/DL (74-106) H Calcium Level 8.8 MG/DL (8.5-10.1) Total Bilirubin 1.1 MG/DL (0.2-1.0) H Direct Bilirubin 0.5 MG/DL (0.0-0.3) H Aspartate Amino Transf (AST/SGOT) 30 U/L (15-37) Alanine Aminotransferase (ALT/SGPT) 31 U/L (12-78) Alkaline Phosphatase 243 U/L (46-116) H Total Protein 6.9 G/DL (6.4-8.2) Albumin 2.2 G/DL (3.4-5.0) L Globulin 4.7 g/dL Albumin/Globulin Ratio 0.5 (1.0-2.7) L Prothrombin Time 12.0 SEC (9.30-11.50) H Prothromb Time International Ratio 1.1 (0.9-1.1) Activated Partial Thromboplast Time 32 SEC (23-33) Plan Problems: (1) Acute endometritis (2) Fever (3) Leukocytosis (4) Abdominal pain Assessment & Plan: This is a 48-year-old female with abdominal pain, leukocytosis, febrile, anemia, CT scan as below. Likely etiology is her uterus. Will discuss with Dr. Salgado potential interventions. For now will need to be n.p.o. with IV fluids, IV antibiotics. Trend labs. We will follow with serial abdominal examinations. OR tomorrow with finish carpenter as etiology likely uterus plan for hysterectomy appy if needed npo p mn iv fluids iv abx thank you Jaden Moore Jan 06, 2019 15:28
--- NOTE | 2019-01-06 16:13 | NUR ---
*-* NO INSURANCE INFORMATION IN THE BAR UNABLE TO SEND CLINICALS OR REVIEWS *-*
--- NOTE | 2019-01-06 16:27 | Anethesia Preoperative Eval ---
Anesthesia Pre-op PMH/ROS General Date of Evaluation: Jan 06, 2019 Time of Evaluation: 16:16 Anesthesiologist: Nora ASA Score: ASA 3 Mallampati Score Class I : Soft palate, uvula, fauces, pillars visible Class II: Soft palate, uvula, fauces visible Class III: Soft palate, base of uvula visible Class IV: Only hard plate visible Mallampati Classification: Class II Surgeon: Naomi Diagnosis: Abd Pain Surgical Procedure: Toatal Abdominal Hysterectomy, Possible Appendectomy, Possible Salpingo oop Anesthesia History: none Social History: current smoker Family History: no anesthesia problems Allergies: Coded Allergies: No Known Allergies (Unverified , 01/04/19) Medications: see eMAR Patient NPO?: Yes Past Medical History Cardiovascular: Reports: HTN, other - Chest Pain Neurologic/Psychiatric: Reports: CVA - Cerebral Aneurysm-Coiled Hematology/Immune: Reports: anemia, DVT, other - Sepsis Musculoskeletal/Integumentary: Reports: OA PSxH Narrative: S/P Uterine Artery Embolization For Leiomyoma Uterus Anesthesia Pre-op Phys. Exam Physician Exam Last Vital Signs Date Time Temp Pulse Resp B/P (MAP) Pulse Ox O2 Delivery O2 Flow Rate FiO2 01/06/19 16:00 101.1 92 15 127/85 (99) 99 01/06/19 09:00 Room Air Constitutional: NAD Neurologic: CN 2-12 intact Cardiovascular: RRR Respiratory: CTA Gastrointestinal: S/NT/ND Airway Exam Mallampati Score: Class II MO: full ROM: limited Teeth: missing, intact Anesthesia Pre-op A/P Labs Hematology Test 01/06/19 04:50 White Blood Count 21.8 K/UL (4.8-10.8) H Red Blood Count 4.07 M/UL (4.20-5.40) L Hemoglobin 9.9 G/DL (12.0-16.0) L Hematocrit 30.6 % (37.0-47.0) L Mean Corpuscular Volume 75 FL (80-99) L Mean Corpuscular Hemoglobin 24.4 PG (27.0-31.0) L Mean Corpuscular Hemoglobin Concent 32.5 G/DL (32.0-36.0) Red Cell Distribution Width 19.0 % (11.6-14.8) H Platelet Count 317 K/UL (150-450) Mean Platelet Volume 5.0 FL (6.5-10.1) L Neutrophils (%) (Auto) % (45.0-75.0) Lymphocytes (%) (Auto) % (20.0-45.0) Monocytes (%) (Auto) % (1.0-10.0) Eosinophils (%) (Auto) % (0.0-3.0) Basophils (%) (Auto) % (0.0-2.0) Differential Total Cells Counted 100 Neutrophils % (Manual) 85 % (45-75) H Lymphocytes % (Manual) 8 % (20-45) L Monocytes % (Manual) 7 % (1-10) Eosinophils % (Manual) 0 % (0-3) Basophils % (Manual) 0 % (0-2) Band Neutrophils 0 % (0-8) Platelet Estimate Adequate Platelet Morphology Normal Hypochromasia 2+ Anisocytosis 2+ Microcytosis 1+ Coagulation Test 01/06/19 08:45 Prothrombin Time 12.0 SEC (9.30-11.50) H Prothromb Time International Ratio 1.1 (0.9-1.1) Activated Partial Thromboplast Time 32 SEC (23-33) Chemistry Test 01/06/19 04:50 Sodium Level 136 MMOL/L (136-145) Potassium Level 3.4 MMOL/L (3.5-5.1) L Chloride Level 100 MMOL/L (98-107) Carbon Dioxide Level 27 MMOL/L (21-32) Anion Gap 9 mmol/L (5-15) Blood Urea Nitrogen 5 mg/dL (7-18) L Creatinine 0.8 MG/DL (0.55-1.30) Estimat Glomerular Filtration Rate > 60 mL/min (>60) Glucose Level 135 MG/DL (74-106) H Calcium Level 8.8 MG/DL (8.5-10.1) Total Bilirubin 1.1 MG/DL (0.2-1.0) H Direct Bilirubin 0.5 MG/DL (0.0-0.3) H Aspartate Amino Transf (AST/SGOT) 30 U/L (15-37) Alanine Aminotransferase (ALT/SGPT) 31 U/L (12-78) Alkaline Phosphatase 243 U/L (46-116) H Total Protein 6.9 G/DL (6.4-8.2) Albumin 2.2 G/DL (3.4-5.0) L Globulin 4.7 g/dL Albumin/Globulin Ratio 0.5 (1.0-2.7) L Risk Assessment & Plan Assessment: ASA 3 Plan: GA Status Change Before Surgery: No Pre-Antibiotics Drug: Jerardo French MD Jan 06, 2019 16:27
--- NOTE | 2019-01-06 17:30 | NUR ---
NURSE NOTES: TEMP 101.0 ORAL. COOLING MEASURES CONTINUED. ADMINISTER TYLENOL 65 MG PO ORDERED. RE-ASSESSED TEM, CURRENTLY 98.[address] HANSON NOTIFIED NEW ORDERS RECEIVED.
--- NOTE | 2019-01-06 19:30 | NUR ---
NURSE NOTES: Received report from JEFF Hogan and rounds made with outgoing nurse. Received pt lying in bed, AOx4, denies any pain, no distress noted. IV R IJ and R hand patent and intact. IV fluid infusing as ordered to R hand. Bed in lowest position and locked, side rails up x 2, call light within reach. Will continue to monitor.
--- NOTE | 2019-01-06 19:35 | NUR ---
HAND-OFF: Report given to AILEEN ARTEAGA RN.
[2019-01-06] MEDS ORDERED: Vancomycin 1.5gm Premix IVPB ONE (21:00)
[2019-01-06] MEDS ORDERED: Iron Sucrose 100 MG in NS 55 ML IV SCH (21:00)
--- NOTE | 2019-01-06 23:42 | NUR ---
NURSE NOTES: Temp 101.7 Tylenol 650mg PO given. Pt denies any pain, no distress noted. Will continue to monitor.
[2019-01-07] VITALS (16 sets, daily range): BP systolic 102–154; BP diastolic 70–105
--- NOTE | 2019-01-07 00:30 | NUR ---
NURSE NOTES: Recheck temp. 101.3 encouraged pt to use incentive spirometry. Pt used IS with good effort and reinforcement of teaching. Denies any pain, no distress noted. Will continue to monitor.
[2019-01-07] MEDS: Piperacillin/Tazobactam 3.375 GM in NS 110 ML IVPB SCH ×3 (02:02→17:46)
[2019-01-07] MEDS: Potassium Chloride 40 MEQ in Dextrose 5%/Lactated Ringer's 1,000 ML IV SCH ×3 (03:11→15:24)
--- NOTE | 2019-01-07 04:30 | NUR ---
NURSE NOTES: Pt states she passed a blood clot in the restroom. When I checked the toilet, a bunch of toilet paper was in the toilet unable to see the blood clot that patient states. Instructed pt not to place toilet paper in the toilet to be able to see the clot and to class the nurse. Pt verbalized and acknowledge understanding.
[2019-01-07 05:27] LABS: HEMOGLOBIN 10.1 G/DL (12.0-16.0); MEAN CORPUSCULAR VOLUME 76 FL (80-99); PLATELET COUNT 339 K/UL (150-450); RED BLOOD COUNT 4.11 M/UL (4.20-5.40); RED CELL DISTRIBUTION WIDTH 19.3 % (11.6-14.8)
[2019-01-07 05:32] LABS: INR 1.1 (0.9-1.1)
[2019-01-07 05:48] LABS: ALANINE AMINOTRANSFERASE 22 U/L (12-78); ALBUMIN 2.1 G/DL (3.4-5.0); ALBUMIN/GLOBULIN RATIO 0.5 (1.0-2.7); ALKALINE PHOSPHATASE 221 U/L (46-116); ANION GAP 4 mmol/L (5-15); ASPARTATE AMINO TRANSFERASE 18 U/L (15-37); BILIRUBIN,TOTAL 0.6 MG/DL (0.2-1.0); BLOOD UREA NITROGEN 3 mg/dL (7-18); CALCIUM 8.9 MG/DL (8.5-10.1); CARBON DIOXIDE 28 MMOL/L (21-32); CHLORIDE 103 MMOL/L (98-107); CREATININE 0.9 MG/DL (0.55-1.30); POTASSIUM 4.3 MMOL/L (3.5-5.1); SODIUM 135 MMOL/L (136-145)
--- NOTE | 2019-01-07 06:50 | NUR ---
NURSE NOTES: Pt picked up and taken down to O.R. for surgery. Pt in stable condition, no distress noted. Will endorse to next nurse.
--- NOTE | 2019-01-07 07:05 | NUR ---
HAND-OFF: Report given to JEFF Hogan. Pt in stable condition.
[2019-01-07] MEDS ORDERED: Bacitracin 50000 Units Vial ONE (07:10)
--- NOTE | 2019-01-07 07:15 | NUR ---
NURSE NOTES: PATIENT WENT TO OR PRIOR TO SHIFT CHANGE. REPORT RECEIVED.
[2019-01-07] MEDS ORDERED: Zemuron 50mg/5ml Inj IV ONE (07:18)
[2019-01-07] MEDS ORDERED: fentaNYL 100 mcg/2 mL IV ONE (07:24)
[2019-01-07] MEDS ORDERED: Lidocaine 1% MPF 10mg/ml 5ml ONE (07:24)
[2019-01-07] MEDS ORDERED: Propofol 200mg/20ml IV ONE (07:24)
[2019-01-07] MEDS ORDERED: Midazolam 2mg/2ml Inj ONE (07:24)
[2019-01-07] MEDS ORDERED: Dexamethasone 4mg/ml vial ONE (07:26)
[2019-01-07] MEDS ORDERED: Ketorolac 30mg Inj ONE ×2 (07:26→09:40)
[2019-01-07] MEDS ORDERED: Metoclopramide 10mg/2ml Inj ONE (07:26)
[2019-01-07] MEDS ORDERED: Glycopyrrolate 0.2mg/ml 1ml Vial ONE (07:26)
[2019-01-07] MEDS ORDERED: NS Irrig 1000ml ONE (07:30)
[2019-01-07] MEDS ORDERED: LR 1000ml ONE (07:30)
[2019-01-07] MEDS ORDERED: Sterile Water Irrig 1000ml IRRIG ONE (07:30)
--- NOTE | 2019-01-07 08:01 | Pre-Procedure Note/Attestation ---
Pre-Procedure Note/Attestation Complete Prior to Procedure Planned Procedure: not applicable Procedure Narrative: total ABDOMINAL HYSTERECTOMY bilateral salpingo oopherectomy, possible appendectomy Indications for Procedure Pre-Operative Diagnosis: necrotic prolapsing myoma Attestation I attest that I discussed the nature of the procedure; its benefits; risks and complications; and alternatives (and the risks and benefits of such alternatives ), prior to the procedure, with the patient (or the patient's legal product sales representative). I attest that, if there was a reasonable possibility of needing a blood transfusion, the patient (or the patient's legal product sales representative) was given the [facility] standardized written summary, pursuant to the Narinder Cecile Blood Safety Act ([place] Health and Safety Code # 1645, as amended). I attest that I re-evaluated the patient just prior to the surgery and that there has been no change in the patient's H&P, except as documented below: Agus Salgado MD Jan 07, 2019 08:01
[2019-01-07] MEDS ORDERED: Vancomycin 1gm vial IVPB ONE (08:17)
[2019-01-07] MEDS ORDERED: ProvayBlue 5mg/ml 10ml amp INJ ONE (08:45)
[2019-01-07] MEDS: Vancomycin 1gm/D5W 275ml IVPB SCH ×4 (09:00→22:41)
--- NOTE | 2019-01-07 09:25 | Immediate Post-Op Evaluation ---
Immediate Post-Op Evalulation Immediate Post-Op Evalulation Procedure: [facility] Date of Evaluation: Jan 07, 2019 Time of Evaluation: 09:27 IV Fluids: 500 Blood Products: 0 Estimated Blood Loss: 50 Urinary Output: 400 Blood Pressure Systolic: 147 Blood Pressure Diastolic: 96 Pulse Rate: 99 Respiratory Rate: 16 O2 Sat by Pulse Oximetry: 100 Temperature (Fahrenheit): 97.9 Pain Score (1-10): 0 Nausea: No Vomiting: No Complications 0 Patient Status: awake, reacts, patent, none Hydration Status: adequate Drug: Vanco and zosyn Given Within 1 Hr of Incision: Yes Loida Salinas MD Jan 07, 2019 09:25
[2019-01-07] MEDS ORDERED: LR 1000ml 1,000 ML IVLG SCH (09:33)
[2019-01-07] MEDS ORDERED: DiphenhydrAMINE 50mg/ml Inj ONE (09:40)
[2019-01-07] MEDS ORDERED: LORazepam Inj 2mg/ml 1ml IV PRN (09:45)
[2019-01-07] MEDS ORDERED: Midazolam 2mg/2ml Inj IVP PRN (09:45)
[2019-01-07] MEDS ORDERED: DiphenhydrAMINE 50mg/ml Inj IVP PRN (09:45)
[2019-01-07] MEDS ORDERED: Ketorolac 30mg Inj IV PRN (09:45)
[2019-01-07] MEDS ORDERED: Hydromorphone 0.5mg/0.5ml inj IVP PRN (09:45)
[2019-01-07] MEDS ORDERED: fentaNYL 100 mcg/2 mL IV PRN (09:45)
[2019-01-07] MEDS ORDERED: Metoclopramide 10mg/2ml Inj IVP PRN ×2 (09:45)
[2019-01-07] MEDS ORDERED: Morphine Sulfate 2mg/ml Inj(IV/IM USE ONLY) IVP PRN ×2 (09:45)
--- NOTE | 2019-01-07 09:48 | Brief Operative Note ---
Immediate Post Operative Note Operative Note Pre-op Diagnosis: abdominal pain Procedure: exploratory laparotomy with open lysis of adhesions Post-op Diagnosis: same as pre-op Surgeon: delroy Additional Surgeons: tanya Anesthesia: general Specimen: yes Complications: none Condition: stable Fluids: see records Estimated Blood Loss: minimal Drains: none Implant(s) used?: No Jaden Moore Jan 07, 2019 09:48
--- NOTE | 2019-01-07 10:30 | NUR ---
NURSE NOTES: PATIENT RETURNED FROM PACU ON BED. AOX4. SURGICAL SITE ASSESSED. DRSG; C/D/I. [place] PATENT AND SECURED TO RIGHT THIGH. OUTPUT YELLOW WITH NO SEDIMENTS PRESENT. BEDSIDE REPORT RECEIVED. C/O SURGICAL PAIN 03/18. VSS.AFEBRILE. ORDERS REVIEWED. WILL ADMINISTER ANALGESICS ORDERED. BE DIN LOWEST POSITION , CALL LIGHT WITHIN REACH.
[2019-01-07] MEDS: Morphine Sulfate 4mg/ml Inj (IV USE ONLY) IVP PRN ×2 (10:45→15:28)
--- NOTE | 2019-01-07 11:15 | NUR ---
NURSE NOTES: PATIENT RESTING COMFORTABLY AFTER GIVEN PAIN MEDICATION.VSS. REMAINS AFEBRILE.
--- NOTE | 2019-01-07 11:49 | NUR ---
CASE MANAGEMENT:REVIEW 01/07/19 SI: SEPSIS D/T PELVIC INFECTION EXPLORATORY LAPAROTOMY W/OPEN LYSIS OF ADHESIONS 97.9 75 15 128/90 100% ON RA WBC+22.0 H/H-10.1/31.0 IS: IV MORPHINE Q4HRS PRN IV VANCOMYCIN Q12 IV ZOSYN Q8HRSB : MED/SURG STATUS 3 EAST DCP: FROM HOME INTERQUAL CRITERIA MET
--- NOTE | 2019-01-07 15:00 | Operative Note - Dictated ---
DATE OF OPERATION: 01/07/2019 PREOPERATIVE DIAGNOSES: 1. Necrotic prolapsing myoma. 2. Abdominal pain. POSTOPERATIVE DIAGNOSES: 1. Necrotic prolapsing myoma. 2. Abdominal pain. OPERATION PERFORMED: 1. Exploratory laparotomy. 2. Open lysis of adhesions. 3. Total abdominal hysterectomy and bilateral salpingo-oophorectomy performed by Dr. Agus Salgado and assisted by myself. ATTENDING SURGEON: Jaden Moore M.D. ADDITIONAL SURGEON: Agus Salgado M.D. ANESTHESIA: General. ANESTHESIOLOGIST: Dr. Leeanna Bates. ESTIMATED BLOOD LOSS: Minimal. IV FLUIDS: Please see anesthesia records. COMPLICATIONS: None. DRAINS: None. COUNTS: Sponge and needle count correct x2. SPECIMENS: Please see Dr. Salgado report. WOUND CLASSIFICATION: Class 3. ANTIBIOTICS: The patient on IV scheduled antibiotics for acute active inflammatory process. INDICATIONS FOR PROCEDURE: This is a 48-year-old female patient who presented to [facility] Emergency Department complaining of worsening abdominal pain. The patient is a patient Dr. Agus Salgado, who has had uterine embolization in the past and presents with prolapsing myoma clinically, abdominal pain, fevers, and leukocytosis. Given these findings, surgery was indicated and recommended. Planned surgery was for Dr. Salgado to perform a total abdominal hysterectomy and bilateral salpingo-oophorectomy, and for myself to obtain exploration of the abdomen for him to be able to do the procedure as well as lysis of adhesions as necessary and potentially an appendectomy if necessary. Risks, benefits, and alternatives discussed with the patient preoperatively in detail. The patient expressed understanding and consented for surgery. OPERATIVE NOTE: The patient was taken to the operating room and placed on the operating table in supine position with bilateral arms out. All bony prominences were well padded. SCDs were placed. A time-out was taken identifying the patient, procedure, operative staff, and surgical staff. General anesthesia was induced and the patient was intubated. The abdomen was clipped, prepped, and draped in standard surgical fashion. I began making an infraumbilical midline incision using a fresh #10 scalpel. Incision was carried down to the subcutaneous tissue until the fascia. The fascia was incised and elevated and entry into the abdomen obtained without complication. Once appropriate exposure was identified, a large uterus was noted with multiple myomas. There was a fair amount of small bowel adhesions to the uterus and using Metzenbaum scissors and blunt dissection lysis of adhesions was performed until the uterus could be completely mobilized and brought out through the incision. Following this, I assisted Dr. Agus Salgado in completing a total abdominal hysterectomy and bilateral salpingo-oophorectomy. Please refer to Dr. Salgado' report for details. Once this was completed, the abdomen was inspected, irrigated, cleansed, and the appendix was identified, noted to be without complication. Therefore, no appendectomy was indicated or recommended. Following this, the abdomen was closed with a 0 looped PDS suture followed by irrigation of the wound, hemostasis and reapproximation of skin incision with surgical skin melvin. Dressings were applied. The patient tolerated the procedure well, was extubated and taken to postanesthetic care unit in stable condition. Jdaen Moore M.D. DR: MICKI JOB#: [id number] CC:
--- NOTE | 2019-01-07 16:50 | General Progress Note ---
Assessment/Plan Assessment/Plan: 1. Sepsis due to pelvic infection. 2. Status post uterine artery embolization for leiomyoma uteri. 3. Hypertension, controlled. 4. Anemia. 5. Hypokalemia. 6. History of stroke. WBC high; added vanco hysterectomy done today K normal BP high; resume rx temp down post op dc abx soon Subjective Gastrointestinal/Abdominal: Reports: abdominal pain Allergies: Coded Allergies: No Known Allergies (Unverified , 01/04/19) Objective Last 24 Hour Vital Signs Date Time Temp Pulse Resp B/P (MAP) Pulse Ox O2 Delivery O2 Flow Rate FiO2 01/07/19 15:58 97.8 01/07/19 13:30 97.4 67 16 148/89 (108) 98 01/07/19 12:32 97.8 01/07/19 12:30 98.1 65 16 125/94 (104) 98 01/07/19 12:05 97.8 81 21 132/87 (102) 100 01/07/19 10:59 97.9 75 15 128/90 (103) 100 01/07/19 10:30 98.1 73 17 125/89 (101) 98 01/07/19 10:21 97.8 82 20 142/98 100 Nasal Cannula 3 01/07/19 10:10 78 18 145/101 100 Nasal Cannula 3 01/07/19 09:55 80 20 151/105 100 Nasal Cannula 3 01/07/19 09:45 80 21 142/99 100 Nasal Cannula 3 01/07/19 09:35 91 19 144/95 100 Nasal Cannula 3 01/07/19 09:30 94 16 152/102 100 Simple Mask 6 01/07/19 09:25 99 16 100 01/07/19 09:22 97.9 99 18 142/96 100 Simple Mask 6 01/07/19 09:00 Nasal Cannula 3.0 01/07/19 04:00 98.7 84 17 102/70 (81) 98 01/07/19 00:30 101.3 18 96 01/07/19 00:00 101.7 95 20 128/78 (95) 96 01/06/19 21:00 Room Air 01/06/19 20:00 99.1 87 19 118/75 (89) 98 01/06/19 16:56 98.9 Intake and Output 01/06/19 01/07/19 19:00 07:00 Intake Total 1531.25 ml 1102.5 ml Balance 1531.25 ml 1102.5 ml Intake IV Total 1531.25 ml 1102.5 ml # Voids 3 2 Laboratory Tests 01/07/19 04:50: White Blood Count 22.0H, Red Blood Count 4.11L, Hemoglobin 10.1L, Hematocrit 31.0L, Mean Corpuscular Volume 76L, Mean Corpuscular Hemoglobin 24.5L, Mean Corpuscular Hemoglobin Concent 32.5, Red Cell Distribution Width 19.3H, Platelet Count 339, Mean Platelet Volume 5.6L, Neutrophils (%) (Auto) , Lymphocytes (%) (Auto) , Monocytes (%) (Auto) , Eosinophils (%) (Auto) , Basophils (%) (Auto) , Differential Total Cells Counted 100, Neutrophils % ( Manual) 89H, Lymphocytes % (Manual) 3L, Monocytes % (Manual) 8, Eosinophils % ( Manual) 0, Basophils % (Manual) 0, Band Neutrophils 0, Platelet Estimate Adequate, Platelet Morphology Normal, Hypochromasia 1+, Anisocytosis 2+, Microcytosis 1+, Prothrombin Time 11.7H, Prothromb Time International Ratio 1.1 , Activated Partial Thromboplast Time 32, Sodium Level 135L, Potassium Level 4.3 , Chloride Level 103, Carbon Dioxide Level 28, Anion Gap 4L, Blood Urea Nitrogen 3L, Creatinine 0.9, Estimat Glomerular Filtration Rate > 60, Glucose Level 136H, Calcium Level 8.9, Total Bilirubin 0.6, Aspartate Amino Transf (AST/ SGOT) 18, Alanine Aminotransferase (ALT/SGPT) 22, Alkaline Phosphatase 221H, Total Protein 6.6, Albumin 2.1L, Globulin 4.5, Albumin/Globulin Ratio 0.5L Height (Feet): 5 Height (Inches): 8.00 Weight (Pounds): 161 General Appearance: WD/WN, no apparent distress Cardiovascular: normal rate Respiratory/Chest: lungs clear Ross Salazar MD Jan 07, 2019 16:50
[2019-01-07] MEDS: Docusate 100mg cap ORAL SCH (17:09)
--- NOTE | 2019-01-07 18:30 | NUR ---
NURSE NOTES: PATIENT REMAINS AFEBRILE. SURGICAL SITE C/D/I. USING I/S INSTRUCTED. PAIN CONTROLLED WITH B/T DILAUDID. HARRINGTON CATHETER PATENT AND SECURED TO THIGH. TOLERATING CLD. CALL LIGHT WITHIN REACH.
--- NOTE | 2019-01-07 18:45 | NUR ---
NURSE NOTES: Patient has single IV access. Spoke with pharmacist, [place], stated that venofer can be run after the antibiotics. Will run Vanco once zosyn administration is complete. Addendum: 01/07/19 at 2143 by Tello Treadwell RN Time stamp incorrect, time was 2044, 01/07/19.
--- NOTE | 2019-01-07 19:02 | NUR ---
HAND-OFF: Report given to FAUSTINO Morin RN.
--- NOTE | 2019-01-07 19:15 | NUR ---
NURSE NOTES: Report taken from JEFF Hogan. Patient is awake and in bed, A&Ox4. No signs of distress on room air. Having moderate complaints of pain, 5/10. Has swelling on her right hand up through her forearm, previous IV at site was infiltrated, continue to monitor. IV site at Rt IJ c/d/i and patent, running Zosyn currently. Surgical site c/d/i, no staining present. Rocha c/d/i and patent running light green urine, color from procedure. bed in lowest position, call light within reach.
[2019-01-07] MEDS: cloNIDine 0.2mg Tab ORAL SCH (21:04)
--- NOTE | 2019-01-07 21:20 | NUR ---
NURSE NOTES: IV site at Rt IJ became swollen and cool to the touch. Removed IV, will place new IV. Notified pharmacy of infusion delay.
[2019-01-08] VITALS: BP 105/88
[2019-01-08] MEDS: Iron Sucrose 100 MG in NS 55 ML IV SCH ×2 (00:10→23:00)
[2019-01-08] MEDS: Potassium Chloride 40 MEQ in Dextrose 5%/Lactated Ringer's 1,000 ML IV SCH (00:27)
[2019-01-08] MEDS: Piperacillin/Tazobactam 3.375 GM in NS 110 ML IVPB SCH ×2 (01:21→09:23)
[2019-01-08 04:00] VITALS: BP 137/75
--- NOTE | 2019-01-08 05:45 | Operative Note - Dictated ---
DATE OF OPERATION: 01/07/2019 SURGEON: Agus Salgado M.D. SURG NURSE SURGEON: Jaden Moore M.D. ANESTHESIA: General endotracheal. PREOPERATIVE DIAGNOSIS: Prolapsing infarcted leiomyoma. POSTOPERATIVE DIAGNOSES: Prolapsing infarcted leiomyoma plus pelvic adhesions. PROCEDURE: Lysis of adhesions (dictated by Dr. Moore as a separate report), total abdominal hysterectomy and bilateral salpingo-oophorectomy (difficult). ESTIMATED BLOOD LOSS: 50 mL. COMPLICATIONS: None. COUNTS: Sponge and needle count correct x2. INDICATIONS AND FINDINGS: A 48-year-old female, who had undergone an uneventful uterine artery embolization, now presenting with a 2-day history of temperature, leukocytosis, foul-smelling vaginal discharge, and CT findings suggestive of prolapsing infarcted myoma. At the time of hysterectomy, the patient had pelvic adhesions, which were lysed by Dr. Moore. The uterus was then grossly enlarged. The fallopian tubes and ovaries were normal. Externally, there was no evidence of a pelvic inflammatory disease and the tubes and ovaries had no evidence of malignancy. No evidence of endometriosis. The appendix is normal and is not removed at the patient's request. There is no evidence of destruction of the genitourinary or gastrointestinal tract. Urine was clear at the end of the case and bluish discoloration was given secondary to injection intravenously of indigo carmine. PROCEDURE IN DETAIL: The patient was prepped and draped and placed in the dorsal position. Abdomen was entered through a midline incision. The peritoneal cavity entered bluntly. Pelvic adhesions were encountered, which were lysed by Dr. Moore (dictated as a separate operative note). The patient's uterus was then delivered out of the midline incision. It was enlarged to a size of a 5-month gestation multiple myomata including a right-sided pedunculated subserous myoma. The hysterectomy was then begun on the right side. The patient's round ligament was clamped, cut, and ligated and the peritoneal reflection was taken down sharply. The patient's infundibulopelvic ligament on the right side was identified, clamped, cut, and doubly ligated. The bladder flap taken down anteriorly to peritoneum. The uterine arteries were identified, skeletonized, clamped, cut, and doubly ligated with #1 Vicryl suture. (This suture was used throughout the hysterectomy). The procedure was repeated on the left side. The patient's cardinal ligament was clamped, cut, and ligated. The cervix was intermittently involved with the pedunculated myoma and the total hysterectomy was performed as the patient had requested. The cervix was identified. The vagina was incised just distal to the cervix and cut free. The specimen was removed from the operative field. The patient's vaginal cuff was then oversewn with cardinal sutures at both ends, the vaginal cuff was placed, and a running #1 Vicryl suture was placed across the cuff. Copious irrigation was performed. There was no bleeding and the abdomen was then closed. The fascia and the peritoneum were closed with a running suture of 0 PDS suture. The skin was then closed with clips and Steri-Strips. The bandage was placed on top of the incision. The time of the hysterectomy is almost 1 hour and is continued to be difficult because of the size of uterus. The patient tolerated the procedure and left the operating room in stable condition. Agus Salgado M.D. DR: MELISA JOB#: [id number] CC:
--- NOTE | 2019-01-08 07:13 | NUR ---
NURSE NOTES: Report taken from JEFF Javed. Patient is awake and in bed, A&Ox4. No signs of distress on room air. Pt denies any pain at the moment. Surgical site c/d/i, no staining present. Rocha patent and draining. bed in lowest position, call light within reach. Will continue to monitor.
--- NOTE | 2019-01-08 07:13 | NUR ---
HAND-OFF: Report given to JEFF Arora. Patient is awake, VS stable.
[2019-01-08 08:00] VITALS: BP 126/78
[2019-01-08] MEDS: cloNIDine 0.2mg Tab ORAL SCH ×2 (08:13→23:07)
[2019-01-08] MEDS: Docusate 100mg cap ORAL SCH ×2 (08:13→18:30)
[2019-01-08] MEDS: Vancomycin 1gm/D5W 275ml IVPB SCH ×2 (08:16)
[2019-01-08 08:24] LABS: HEMATOCRIT 30.7 % (37.0-47.0); HEMOGLOBIN 9.7 G/DL (12.0-16.0); MEAN CORPUSCULAR VOLUME 76 FL (80-99); PLATELET COUNT 336 K/UL (150-450); RED BLOOD COUNT 4.05 M/UL (4.20-5.40); RED CELL DISTRIBUTION WIDTH 19.9 % (11.6-14.8); WHITE BLOOD COUNT 17.2 K/UL (4.8-10.8)
--- NOTE | 2019-01-08 08:41 | NUR ---
NURSE NOTES: DC'd patients burton per MD orders. Will continue to monitor.
[2019-01-08 08:51] LABS: ALANINE AMINOTRANSFERASE 15 U/L (12-78); ALBUMIN 1.8 G/DL (3.4-5.0); ALBUMIN/GLOBULIN RATIO 0.4 (1.0-2.7); ALKALINE PHOSPHATASE 169 U/L (46-116); ANION GAP 2 mmol/L (5-15); ASPARTATE AMINO TRANSFERASE 16 U/L (15-37); BILIRUBIN,TOTAL 0.3 MG/DL (0.2-1.0); BLOOD UREA NITROGEN 6 mg/dL (7-18); CALCIUM 8.5 MG/DL (8.5-10.1); CARBON DIOXIDE 28 MMOL/L (21-32); CHLORIDE 106 MMOL/L (98-107); CREATININE 0.9 MG/DL (0.55-1.30); POTASSIUM 4.6 MMOL/L (3.5-5.1); SODIUM 136 MMOL/L (136-145)
--- NOTE | 2019-01-08 10:50 | NUR ---
NURSE NOTES: Pt was able to void. Pt states there was no pain during urination. Urine is now yellow. No green noted. No odor noted.
--- NOTE | 2019-01-08 11:18 | General Progress Note ---
Assessment/Plan Assessment/Plan: 1. Sepsis due to pelvic infection, resolved 2. Status post uterine artery embolization for leiomyoma uteri. 3. Hypertension, controlled. 4. Anemia. 5. Hypokalemia. 6. History of stroke. tolerated surgery well source of infection gone; afebrile dc abx; disc w Dr Salgado BP controlled cont post op care Subjective Constitutional: Denies: chills, fever Gastrointestinal/Abdominal: Reports: abdominal pain Allergies: Coded Allergies: No Known Allergies (Unverified , 01/04/19) Objective Last 24 Hour Vital Signs Date Time Temp Pulse Resp B/P (MAP) Pulse Ox O2 Delivery O2 Flow Rate FiO2 01/08/19 09:00 Room Air 01/08/19 08:13 126/78 01/08/19 08:00 97.5 56 17 126/78 (94) 95 01/08/19 04:00 97.3 56 18 137/75 (95) 98 01/08/19 00:00 97.4 49 16 105/88 (94) 95 01/07/19 21:04 153/96 01/07/19 21:00 Room Air 01/07/19 20:00 97.9 64 20 153/96 (115) 97 01/07/19 17:40 97.8 01/07/19 16:00 97.4 55 18 154/85 (108) 97 01/07/19 15:58 97.8 01/07/19 13:30 97.4 67 16 148/89 (108) 98 01/07/19 12:30 98.1 65 16 125/94 (104) 98 01/07/19 12:05 97.8 81 21 132/87 (102) 100 Intake and Output 01/07/19 01/08/19 19:00 07:00 Intake Total 1667.5 ml 900 ml Output Total 1500 ml 1075 ml Balance 167.5 ml -175 ml Intake Oral 900 ml IV Total 1667.5 ml Output Urine Total 1450 ml 1075 ml Estimated Blood Loss 50 ml Laboratory Tests 01/08/19 08:15: White Blood Count 17.2H, Red Blood Count 4.05L, Hemoglobin 9.7L, Hematocrit 30.7L, Mean Corpuscular Volume 76L, Mean Corpuscular Hemoglobin 24.0L, Mean Corpuscular Hemoglobin Concent 31.6L, Red Cell Distribution Width 19.9H, Platelet Count 336, Mean Platelet Volume 5.7L, Neutrophils (%) (Auto) , Lymphocytes (%) (Auto) , Monocytes (%) (Auto) , Eosinophils (%) (Auto) , Basophils (%) (Auto) , Differential Total Cells Counted 100, Neutrophils % ( Manual) 88H, Lymphocytes % (Manual) 7L, Monocytes % (Manual) 4, Eosinophils % ( Manual) 0, Basophils % (Manual) 0, Band Neutrophils 1, Platelet Estimate Adequate, Platelet Morphology Normal, Hypochromasia 2+, Anisocytosis 2+, Microcytosis 1+, Sodium Level 136, Potassium Level 4.6, Chloride Level 106, Carbon Dioxide Level 28, Anion Gap 2L, Blood Urea Nitrogen 6L, Creatinine 0.9, Estimat Glomerular Filtration Rate > 60, Glucose Level 157H, Calcium Level 8.5, Total Bilirubin 0.3, Aspartate Amino Transf (AST/SGOT) 16, Alanine Aminotransferase (ALT/SGPT) 15, Alkaline Phosphatase 169H, Total Protein 6.0L, Albumin 1.8L, Globulin 4.2, Albumin/Globulin Ratio 0.4L, Vancomycin Level Trough 10.5 Height (Feet): 5 Height (Inches): 8.00 Weight (Pounds): 161 General Appearance: no apparent distress Neck: supple Cardiovascular: normal rate Respiratory/Chest: lungs clear Ross Salazar MD Jan 08, 2019 11:18
[2019-01-08 12:00] VITALS: BP 119/81
--- NOTE | 2019-01-08 12:18 | NUR ---
HAND-OFF: Report given to JEFF Salinas. Plan of care endorsed
--- NOTE | 2019-01-08 12:20 | NUR ---
NURSE NOTES: HANDOFF RECEIVED FROM JEFF HARRINGTON.
[2019-01-08] MEDS: Morphine Sulfate 4mg/ml Inj (IV USE ONLY) IVP PRN ×2 (13:44→22:59)
--- NOTE | 2019-01-08 14:44 | General Surgery Progress Note ---
General Surgery-Progress Note Subjective Day of Surgery: january 07, 2019 Procedure Performed total hysterectomy Symptoms: improved, tolerating diet, voiding well Objective Last 24 Hour Vital Signs Date Time Temp Pulse Resp B/P (MAP) Pulse Ox O2 Delivery O2 Flow Rate FiO2 01/08/19 12:00 97.3 55 17 119/81 (94) 95 01/08/19 09:00 Room Air 01/08/19 08:13 126/78 01/08/19 08:00 97.5 56 17 126/78 (94) 95 01/08/19 04:00 97.3 56 18 137/75 (95) 98 01/08/19 00:00 97.4 49 16 105/88 (94) 95 01/07/19 21:04 153/96 01/07/19 21:00 Room Air 01/07/19 20:00 97.9 64 20 153/96 (115) 97 01/07/19 17:40 97.8 01/07/19 16:00 97.4 55 18 154/85 (108) 97 01/07/19 15:58 97.8 I&O Intake and Output 01/07/19 01/08/19 19:00 07:00 Intake Total 1667.5 ml 900 ml Output Total 1500 ml 1075 ml Balance 167.5 ml -175 ml Intake Oral 900 ml IV Total 1667.5 ml Output Urine Total 1450 ml 1075 ml Estimated Blood Loss 50 ml Dressing: dry Wound: clean Drains: none Cardiovascular: RSR Respiratory: clear Abdomen: soft, flat, scaphoid, tenderness, decreased bowel sounds Laboratory Tests Test 01/08/19 08:15 White Blood Count 17.2 K/UL (4.8-10.8) H Red Blood Count 4.05 M/UL (4.20-5.40) L Hemoglobin 9.7 G/DL (12.0-16.0) L Hematocrit 30.7 % (37.0-47.0) L Mean Corpuscular Volume 76 FL (80-99) L Mean Corpuscular Hemoglobin 24.0 PG (27.0-31.0) L Mean Corpuscular Hemoglobin Concent 31.6 G/DL (32.0-36.0) L Red Cell Distribution Width 19.9 % (11.6-14.8) H Platelet Count 336 K/UL (150-450) Mean Platelet Volume 5.7 FL (6.5-10.1) L Neutrophils (%) (Auto) % (45.0-75.0) Lymphocytes (%) (Auto) % (20.0-45.0) Monocytes (%) (Auto) % (1.0-10.0) Eosinophils (%) (Auto) % (0.0-3.0) Basophils (%) (Auto) % (0.0-2.0) Differential Total Cells Counted 100 Neutrophils % (Manual) 88 % (45-75) H Lymphocytes % (Manual) 7 % (20-45) L Monocytes % (Manual) 4 % (1-10) Eosinophils % (Manual) 0 % (0-3) Basophils % (Manual) 0 % (0-2) Band Neutrophils 1 % (0-8) Platelet Estimate Adequate Platelet Morphology Normal Hypochromasia 2+ Anisocytosis 2+ Microcytosis 1+ Sodium Level 136 MMOL/L (136-145) Potassium Level 4.6 MMOL/L (3.5-5.1) Chloride Level 106 MMOL/L (98-107) Carbon Dioxide Level 28 MMOL/L (21-32) Anion Gap 2 mmol/L (5-15) L Blood Urea Nitrogen 6 mg/dL (7-18) L Creatinine 0.9 MG/DL (0.55-1.30) Estimat Glomerular Filtration Rate > 60 mL/min (>60) Glucose Level 157 MG/DL (74-106) H Calcium Level 8.5 MG/DL (8.5-10.1) Total Bilirubin 0.3 MG/DL (0.2-1.0) Aspartate Amino Transf (AST/SGOT) 16 U/L (15-37) Alanine Aminotransferase (ALT/SGPT) 15 U/L (12-78) Alkaline Phosphatase 169 U/L (46-116) H Total Protein 6.0 G/DL (6.4-8.2) L Albumin 1.8 G/DL (3.4-5.0) L Globulin 4.2 g/dL Albumin/Globulin Ratio 0.4 (1.0-2.7) L Vancomycin Level Trough 10.5 ug/mL (5.0-12.0) Additional Comments po hct stable, wbc falling Plan Additional Comments ambulate, NAT burton, NAT IV antibiotics. Agus Salgado MD Jan 08, 2019 14:44
--- NOTE | 2019-01-08 15:24 | NUR ---
*-* NO INSURANCE INFORMATION IN THE BAR UNABLE TO SEND CLINICALS AND REVIEWS *-*
--- NOTE | 2019-01-08 15:40 | NUR ---
CASE MANAGEMENT:REVIEW 01/08/19 SI: POD #1 SEPSIS D/T PELVIC INFECTION EXPLORATORY LAPAROTOMY W/OPEN LYSIS OF ADHESIONS WBC+17.2 IS: IV MORPHINE Q4HRS PRN IV VENOFER QHS CLONIDINE PO Q12 IV VANCOMYCIN Q12 IV ZOSYN Q8HRSB : MED/SURG STATUS 3 EAST DCP: FROM HOME PLAN: CLEAR LIQUIDS
--- NOTE | 2019-01-08 15:49 | Surgery Progress Note ---
Surgery Progress Note Subjective Procedure Performed exploratory laparotomy with open lysis of adhesions Symptoms: improved, tolerating diet, voiding well Additional Comments no flatus yet ambulatory Objective Last 24 Hour Vital Signs Date Time Temp Pulse Resp B/P (MAP) Pulse Ox O2 Delivery O2 Flow Rate FiO2 01/08/19 14:14 97.3 01/08/19 12:00 97.3 55 17 119/81 (94) 95 01/08/19 09:00 Room Air 01/08/19 08:13 126/78 01/08/19 08:00 97.5 56 17 126/78 (94) 95 01/08/19 04:00 97.3 56 18 137/75 (95) 98 01/08/19 00:00 97.4 49 16 105/88 (94) 95 01/07/19 21:04 153/96 01/07/19 21:00 Room Air 01/07/19 20:00 97.9 64 20 153/96 (115) 97 01/07/19 17:40 97.8 01/07/19 16:00 97.4 55 18 154/85 (108) 97 I&O Intake and Output 01/07/19 01/08/19 19:00 07:00 Intake Total 1667.5 ml 900 ml Output Total 1500 ml 1075 ml Balance 167.5 ml -175 ml Intake Oral 900 ml IV Total 1667.5 ml Output Urine Total 1450 ml 1075 ml Estimated Blood Loss 50 ml Dressing: dry Wound: clean Cardiovascular: RSR Respiratory: clear Abdomen: soft, present bowel sounds, non-distended Extremities: no cyanosis Laboratory Tests Test 01/08/19 08:15 White Blood Count 17.2 K/UL (4.8-10.8) H Red Blood Count 4.05 M/UL (4.20-5.40) L Hemoglobin 9.7 G/DL (12.0-16.0) L Hematocrit 30.7 % (37.0-47.0) L Mean Corpuscular Volume 76 FL (80-99) L Mean Corpuscular Hemoglobin 24.0 PG (27.0-31.0) L Mean Corpuscular Hemoglobin Concent 31.6 G/DL (32.0-36.0) L Red Cell Distribution Width 19.9 % (11.6-14.8) H Platelet Count 336 K/UL (150-450) Mean Platelet Volume 5.7 FL (6.5-10.1) L Neutrophils (%) (Auto) % (45.0-75.0) Lymphocytes (%) (Auto) % (20.0-45.0) Monocytes (%) (Auto) % (1.0-10.0) Eosinophils (%) (Auto) % (0.0-3.0) Basophils (%) (Auto) % (0.0-2.0) Differential Total Cells Counted 100 Neutrophils % (Manual) 88 % (45-75) H Lymphocytes % (Manual) 7 % (20-45) L Monocytes % (Manual) 4 % (1-10) Eosinophils % (Manual) 0 % (0-3) Basophils % (Manual) 0 % (0-2) Band Neutrophils 1 % (0-8) Platelet Estimate Adequate Platelet Morphology Normal Hypochromasia 2+ Anisocytosis 2+ Microcytosis 1+ Sodium Level 136 MMOL/L (136-145) Potassium Level 4.6 MMOL/L (3.5-5.1) Chloride Level 106 MMOL/L (98-107) Carbon Dioxide Level 28 MMOL/L (21-32) Anion Gap 2 mmol/L (5-15) L Blood Urea Nitrogen 6 mg/dL (7-18) L Creatinine 0.9 MG/DL (0.55-1.30) Estimat Glomerular Filtration Rate > 60 mL/min (>60) Glucose Level 157 MG/DL (74-106) H Calcium Level 8.5 MG/DL (8.5-10.1) Total Bilirubin 0.3 MG/DL (0.2-1.0) Aspartate Amino Transf (AST/SGOT) 16 U/L (15-37) Alanine Aminotransferase (ALT/SGPT) 15 U/L (12-78) Alkaline Phosphatase 169 U/L (46-116) H Total Protein 6.0 G/DL (6.4-8.2) L Albumin 1.8 G/DL (3.4-5.0) L Globulin 4.2 g/dL Albumin/Globulin Ratio 0.4 (1.0-2.7) L Vancomycin Level Trough 10.5 ug/mL (5.0-12.0) Plan Problems: (1) Acute endometritis (2) Fever (3) Leukocytosis (4) Abdominal pain Assessment & Plan: This is a 48-year-old female with abdominal pain, leukocytosis, febrile, anemia, CT scan as below. Likely etiology is her uterus. Will discuss with Dr. Salgado potential interventions. For now will need to be n.p.o. with IV fluids, IV antibiotics. Trend labs. We will follow with serial abdominal examinations. POD s/p ex lap with TIMOTHY + BSO recoverig doing well rx as writtent thank you Jaden Moore Jan 08, 2019 15:48
--- NOTE | 2019-01-08 15:56 | NUR ---
P.T NOTE: P.T EVALUATION COMPLETED AND TREATMENT INITIATED. PLEASE REFER TO P.T EVALUATION FOR CURRENT FUNCTIONAL STATUS. Addendum: 01/08/19 at 1556 by FANI HONG PT Amended: Links added.
[2019-01-08 16:00] VITALS: BP 129/84
[2019-01-08] MEDS: D5 1/2NS 1,000 ML IV SCH (16:10)
[2019-01-08] MEDS ORDERED: Vancomycin 1.25gm Premix IVPB SCH (18:00)
--- NOTE | 2019-01-08 19:08 | NUR ---
NURSE NOTES: DR DAVIES CALLED TO CHECK UP ON PATIENT, TOLD HIM THAT PATIENT HAS BEEN HAVING SOME VAGINAL SPOTTING OF BLOOD WHEN WIPING AFTER SURGERY, DOC NOTED THIS IS EXPECTED. HE ALSO PUT IN AN ORDER FOR NORCO 10-325.
--- NOTE | 2019-01-08 19:30 | NUR ---
NURSE NOTES: Receive a report from JEFF Salinas. Done rounds. Pt is awake and alert. Verbally responsive in Haitian. Room air. Breathing is even and non labored. No acute distress noted. No BM or no gas passing yet. Ambulatory with walker assisted. Still noted bleeding spotting during self-voiding. Op site is clear without bleeding signs. IVF hydration without infiltration. Will continue to monitor.
--- NOTE | 2019-01-08 19:44 | NUR ---
HAND-OFF: Report given to JEFF FUNEZ. PATIENT RESTING IN BED, IV SITE RUNNING PRESCRIBED FLUIDS AT 75ML HOUR. NO PHYSICAL SIGNS OF DISTRESS.
[2019-01-08 20:00] VITALS: BP 131/86
[2019-01-08] MEDS ORDERED: NS 500ML ONE (22:24)
[2019-01-08] MEDS ORDERED: Tubing IV Secondary IV ONE ×2 (22:24→22:25)
[2019-01-08] MEDS ORDERED: NS 275ml ONE ×2 (22:24→22:25)
[2019-01-08] MEDS ORDERED: Tubing IV Blood Pump IV ONE ×2 (22:24→22:25)
[2019-01-08] MEDS: Milk of Magnesia 30ml Ud ORAL PRN (23:00)
--- NOTE | 2019-01-08 23:00 | NUR ---
NURSE NOTES: Pt has not had BM nor gas passing yet. No discomfort noted but feeling gas burping and mild nausea sense noted. Encourage ambulation for gas passing. Administer prn MOM for BM. Bilateral SCDs on. Leave call light within reach. Will continue to monitor.
[2019-01-09] VITALS: BP 150/96
--- NOTE | 2019-01-09 01:00 | NUR ---
Pt states, " I just passed gas." Burping and nausea sensation relieved after all. Also op site pain relieved after prn pain medication. No chilling or febrile sensation noted. No noted spotting after urination. Will continue to monitor.
[2019-01-09 04:00] VITALS: BP 145/95
[2019-01-09 05:59] LABS: BASOPHILS % (AUTO) 0.7 % (0.0-2.0); EOSINOPHILS % (AUTO) 0.6 % (0.0-3.0); HEMATOCRIT 31.6 % (37.0-47.0); HEMOGLOBIN 9.9 G/DL (12.0-16.0); LYMPHOCYTES % (AUTO) 27.2 % (20.0-45.0); MEAN CORPUSCULAR VOLUME 77 FL (80-99); MONOCYTES % (AUTO) 6.2 % (1.0-10.0); NEUTROPHILS % (AUTO) 65.4 % (45.0-75.0); PLATELET COUNT 346 K/UL (150-450); RED BLOOD COUNT 4.12 M/UL (4.20-5.40); WHITE BLOOD COUNT 9.5 K/UL (4.8-10.8)
[2019-01-09] MEDS: D5 1/2NS 1,000 ML IV SCH (06:06)
[2019-01-09 06:16] LABS: ALANINE AMINOTRANSFERASE 16 U/L (12-78); ALBUMIN/GLOBULIN RATIO 0.5 (1.0-2.7); ALKALINE PHOSPHATASE 157 U/L (46-116); ANION GAP 6 mmol/L (5-15); ASPARTATE AMINO TRANSFERASE 21 U/L (15-37); BILIRUBIN,TOTAL 0.3 MG/DL (0.2-1.0); BLOOD UREA NITROGEN 3 mg/dL (7-18); CALCIUM 8.9 MG/DL (8.5-10.1); CARBON DIOXIDE 28 MMOL/L (21-32); CHLORIDE 106 MMOL/L (98-107); CREATININE 0.9 MG/DL (0.55-1.30); POTASSIUM 3.7 MMOL/L (3.5-5.1); SODIUM 140 MMOL/L (136-145)
--- NOTE | 2019-01-09 07:30 | NUR ---
NURSE NOTES: Received report from Gho RN. Patient is awake and oriented, no acute distress noted, reports pain is much improved after receiving dilaudid PRN, surgical dressing clean, dry, intact, SCD's on. Patient reports no BM yet but reports she is passing "a lot of gas", patient given milk of magnesia overnight. Patient updated on plan of care for the day. Side rails upx2, bed low and locked, call light in reach. Will continue to monitor.
--- NOTE | 2019-01-09 07:41 | NUR ---
HAND-OFF: Report given to JEFF Phillips. Done rounds.
[2019-01-09 08:00] VITALS: BP 130/80
--- NOTE | 2019-01-09 08:43 | Pulmonology Progress Note ---
Assessment/Plan Assessment/Plan 1. Sepsis due to pelvic infection, resolved 2. Status post uterine artery embolization for leiomyoma uteri. 3. Hypertension, controlled. 4. Anemia. 5. Hypokalemia. 6. History of stroke. doign well source of infection gone; afebrile off abx dc when pain controlled BP controlled cont post op care Subjective Constitutional: Reports: no symptoms HEENT: Repors: no symptoms Respiratory: Reports: no symptoms Cardiovascular: Reports: no symptoms Gastrointestinal/Abdominal: Reports: bloating Genitourinary: Reports: no symptoms Neurologic: Reports: no symptoms Psychiatric: Reports: no symptoms Allergies: Coded Allergies: No Known Allergies (Unverified , 01/04/19) Subjective doign well pain not controlled oob toelrting po no fever Objective Last 24 Hour Vital Signs Date Time Temp Pulse Resp B/P (MAP) Pulse Ox O2 Delivery O2 Flow Rate FiO2 01/09/19 08:00 97.6 55 18 130/80 (97) 99 01/09/19 04:00 97.5 63 18 145/95 (112) 97 01/09/19 00:00 97.7 53 18 150/96 (114) 99 01/08/19 23:07 162/96 01/08/19 21:00 Room Air 01/08/19 20:00 97.3 60 18 131/86 (101) 94 01/08/19 16:00 97.3 50 18 129/84 (99) 95 01/08/19 14:14 97.3 01/08/19 12:00 97.3 55 17 119/81 (94) 95 01/08/19 09:00 Room Air Intake and Output 01/08/19 01/09/19 18:59 06:59 Intake Total 720 ml 1155 ml Output Total 650 ml 1800 ml Balance 70 ml -645 ml Intake Oral 720 ml 350 ml IV Total 805 ml Output Urine Total 650 ml 1800 ml # Voids 3 General Appearance: WD/WN Respiratory/Chest: lungs clear, normal breath sounds, no respiratory distress Cardiovascular: normal rate, regular rhythm Abdomen: tender Neurologic/Psychiatric: oriented x 3, responsive Microbiology Date/Time Source Procedure Growth Status 01/06/19 18:35 Blood Blood Culture - Preliminary NO GROWTH AFTER 48 HOURS Resulted 01/06/19 18:20 Blood Blood Culture - Preliminary NO GROWTH AFTER 48 HOURS Resulted 01/07/19 09:30 Abdominal Cavity Gram Stain - Final Resulted 01/07/19 09:30 Abdominal Cavity Aerobic Culture - Preliminary NO GROWTH Resulted 01/07/19 09:30 Abdominal Cavity Anaerobic Culture - Preliminary NO ANAEROBES ISOLATED Resulted Laboratory Tests 01/09/19 05:25: White Blood Count 9.5, Red Blood Count 4.12L, Hemoglobin 9.9L, Hematocrit 31.6L , Mean Corpuscular Volume 77L, Mean Corpuscular Hemoglobin 23.9L, Mean Corpuscular Hemoglobin Concent 31.2L, Red Cell Distribution Width 20.0H, Platelet Count 346, Mean Platelet Volume 5.1L, Neutrophils (%) (Auto) 65.4, Lymphocytes (%) (Auto) 27.2, Monocytes (%) (Auto) 6.2, Eosinophils (%) (Auto) 0.6, Basophils (%) (Auto) 0.7, Sodium Level 140, Potassium Level 3.7, Chloride Level 106, Carbon Dioxide Level 28, Anion Gap 6, Blood Urea Nitrogen 3L, Creatinine 0.9, Estimat Glomerular Filtration Rate > 60, Glucose Level 104, Calcium Level 8.9, Total Bilirubin 0.3, Aspartate Amino Transf (AST/SGOT) 21, Alanine Aminotransferase (ALT/SGPT) 16, Alkaline Phosphatase 157H, Total Protein 5.9L, Albumin 2.0L, Globulin 3.9, Albumin/Globulin Ratio 0.5L Current Medications Medications (Trade) Dose Ordered Sig/Fuad Route PRN Reason Start Time Stop Time Status Last Admin Dose Admin Acetaminophen (Tylenol) 650 mg Q4H PRN ORAL Temp > 100.5 01/07/19 10:45 02/04/19 03:59 Acetaminophen (Tylenol) 650 mg Q6H PRN ORAL Mild Pain (Pain Scale 1-3) 01/07/19 09:45 02/06/19 09:44 Acetaminophen/ Hydrocodone Bitart ([place] 10/325) 1 tab Q3H PRN ORAL Pain Scale (6-10) 01/08/19 18:00 01/15/19 17:59 Al Hydroxide/Mg Hydroxide (Mylanta) 15 ml Q6H PRN ORAL DYSPEPSIA 01/07/19 09:45 02/06/19 09:44 01/09/19 05:55 Clonidine HCl (Catapres tab) 0.2 mg Q12HR ORAL 01/07/19 21:00 02/06/19 20:59 01/08/19 23:07 Dextrose/Sodium Chloride 1,000 ml @ 75 mls/hr [id number] IV 01/08/19 15:36 02/07/19 15:35 01/09/19 06:06 Diphenhydramine HCl (Benadryl) 25 mg Q8H PRN ORAL Itching/Pruritis 01/07/19 09:45 02/06/19 09:44 Docusate Sodium (Colace) 100 mg TWICE A DAY ORAL 01/07/19 18:00 02/06/19 17:59 01/08/19 18:30 Hydromorphone HCl (Dilaudid) 2 mg Q3H PRN IVP breakthrough pain 01/07/19 10:45 01/12/19 03:59 01/09/19 06:05 Iron Sucrose 100 mg/Sodium Chloride 60 ml @ 240 mls/hr BEDTIME IV 01/07/19 23:00 01/10/19 21:14 01/08/19 23:00 Magnesium Hydroxide (Mom) 30 ml BIDPRN PRN ORAL Constipation 01/07/19 09:45 02/06/19 09:44 01/08/19 23:00 Metoclopramide HCl (Reglan) 10 mg Q6H PRN IVP Nausea & Vomiting 01/07/19 09:45 02/06/19 09:44 Morphine Sulfate (Morphine Sulfate) 1 mg Q4H PRN IVP pain scale 1-3 01/07/19 09:45 01/14/19 09:44 Morphine Sulfate (Morphine Sulfate) 2 mg Q4H PRN IVP pain scale 4-6 01/07/19 09:45 01/14/19 09:44 Morphine Sulfate (Morphine Sulfate) 4 mg Q4H PRN IVP pain score 7-10 01/07/19 09:45 01/14/19 09:44 01/08/19 22:59 Ondansetron HCl (Zofran) 4 mg Q6H PRN IVP Nausea & Vomiting 01/05/19 04:00 02/04/19 03:59 01/07/19 00:58 Temazepam (Restoril) 7.5 mg DAILYPRN PRN ORAL Insomnia 8/1/19 09:45 01/14/19 09:44 Coco Fabian DO Jan 09, 2019 08:43
[2019-01-09] MEDS: cloNIDine 0.2mg Tab ORAL SCH ×2 (09:31→20:57)
[2019-01-09] MEDS: Docusate 100mg cap ORAL SCH ×2 (09:31→19:00)
[2019-01-09] MEDS: HYDROcodone/Acetamin 10/325 tab ORAL PRN ×4 (10:21→20:58)
--- NOTE | 2019-01-09 11:17 | NUR ---
NURSE NOTES: Spoke with Dr. Salgado. MD gave orders to advance patient's diet to regular, soft diet. Informed MD that patient's IV is not flushing and patient is difficult IV access. MD ordered to d/c IV medications and give dilaudid 2mg subcut q3hrs PRN for severe breakthrough pain. MD also stated ok for patient to have no IV access. Orders entered. Will carry out.
[2019-01-09 12:00] VITALS: BP 142/90
--- NOTE | 2019-01-09 12:14 | Surgery Progress Note ---
Surgery Progress Note Subjective Procedure Performed exploratory laparotomy with open lysis of adhesions Symptoms: improved, tolerating diet, voiding well, passing flatus, BM, pain decreased Objective Last 24 Hour Vital Signs Date Time Temp Pulse Resp B/P (MAP) Pulse Ox O2 Delivery O2 Flow Rate FiO2 01/09/19 09:31 130/80 01/09/19 09:28 60 01/09/19 09:00 Room Air 01/09/19 08:00 97.6 55 18 130/80 (97) 99 01/09/19 04:00 97.5 63 18 145/95 (112) 97 01/09/19 00:00 97.7 53 18 150/96 (114) 99 01/08/19 23:07 162/96 01/08/19 21:00 Room Air 01/08/19 20:00 97.3 60 18 131/86 (101) 94 01/08/19 16:00 97.3 50 18 129/84 (99) 95 01/08/19 14:14 97.3 I&O Intake and Output 01/08/19 01/09/19 19:00 07:00 Intake Total 720 ml 1230 ml Output Total 650 ml 1800 ml Balance 70 ml -570 ml Intake Oral 720 ml 350 ml IV Total 880 ml Output Urine Total 650 ml 1800 ml # Voids 3 Dressing: dry Wound: clean Cardiovascular: RSR Respiratory: clear Abdomen: soft, flat, non-tender, present bowel sounds Extremities: no tenderness, no cyanosis Laboratory Tests Test 01/09/19 05:25 White Blood Count 9.5 K/UL (4.8-10.8) Red Blood Count 4.12 M/UL (4.20-5.40) L Hemoglobin 9.9 G/DL (12.0-16.0) L Hematocrit 31.6 % (37.0-47.0) L Mean Corpuscular Volume 77 FL (80-99) L Mean Corpuscular Hemoglobin 23.9 PG (27.0-31.0) L Mean Corpuscular Hemoglobin Concent 31.2 G/DL (32.0-36.0) L Red Cell Distribution Width 20.0 % (11.6-14.8) H Platelet Count 346 K/UL (150-450) Mean Platelet Volume 5.1 FL (6.5-10.1) L Neutrophils (%) (Auto) 65.4 % (45.0-75.0) Lymphocytes (%) (Auto) 27.2 % (20.0-45.0) Monocytes (%) (Auto) 6.2 % (1.0-10.0) Eosinophils (%) (Auto) 0.6 % (0.0-3.0) Basophils (%) (Auto) 0.7 % (0.0-2.0) Sodium Level 140 MMOL/L (136-145) Potassium Level 3.7 MMOL/L (3.5-5.1) Chloride Level 106 MMOL/L (98-107) Carbon Dioxide Level 28 MMOL/L (21-32) Anion Gap 6 mmol/L (5-15) Blood Urea Nitrogen 3 mg/dL (7-18) L Creatinine 0.9 MG/DL (0.55-1.30) Estimat Glomerular Filtration Rate > 60 mL/min (>60) Glucose Level 104 MG/DL (74-106) Calcium Level 8.9 MG/DL (8.5-10.1) Total Bilirubin 0.3 MG/DL (0.2-1.0) Aspartate Amino Transf (AST/SGOT) 21 U/L (15-37) Alanine Aminotransferase (ALT/SGPT) 16 U/L (12-78) Alkaline Phosphatase 157 U/L (46-116) H Total Protein 5.9 G/DL (6.4-8.2) L Albumin 2.0 G/DL (3.4-5.0) L Globulin 3.9 g/dL Albumin/Globulin Ratio 0.5 (1.0-2.7) L Plan Problems: (1) Acute endometritis (2) Fever (3) Leukocytosis (4) Abdominal pain Assessment & Plan: This is a 48-year-old female with abdominal pain, leukocytosis, febrile, anemia, CT scan as below. Likely etiology is her uterus. Will discuss with Dr. Salgado potential interventions. For now will need to be n.p.o. with IV fluids, IV antibiotics. Trend labs. We will follow with serial abdominal examinations. POD s/p ex lap with TIMOTHY + BSO recoverig doing well rx as written thank you Jaden Moore Jan 09, 2019 12:14
--- NOTE | 2019-01-09 15:06 | Cardiology Report ---
APPROVED REPORT EKG Measurement Heart [id number] Normal sinus rhythm Normal ECG
[2019-01-09 16:00] VITALS: BP 142/78
[2019-01-09] MEDS ORDERED: NS 275ml ONE (16:18)
[2019-01-09] MEDS ORDERED: Tubing IV Secondary IV ONE (16:18)
[2019-01-09] MEDS ORDERED: D5 1/2NS 1000ml IV ONE (16:18)
--- NOTE | 2019-01-09 16:21 | General Surgery Progress Note ---
General Surgery-Progress Note Subjective Day of Surgery: po day 2 Procedure Performed total hysterectomy Symptoms: improved, tolerating diet, voiding well, passing flatus, pain decreased Objective Last 24 Hour Vital Signs Date Time Temp Pulse Resp B/P (MAP) Pulse Ox O2 Delivery O2 Flow Rate FiO2 01/09/19 12:00 98.4 58 20 142/90 (107) 98 01/09/19 09:31 130/80 01/09/19 09:28 60 01/09/19 09:00 Room Air 01/09/19 08:00 97.6 55 18 130/80 (97) 99 01/09/19 04:00 97.5 63 18 145/95 (112) 97 01/09/19 00:00 97.7 53 18 150/96 (114) 99 01/08/19 23:07 162/96 01/08/19 21:00 Room Air 01/08/19 20:00 97.3 60 18 131/86 (101) 94 I&O Intake and Output 01/08/19 01/09/19 19:00 07:00 Intake Total 720 ml 1230 ml Output Total 650 ml 1800 ml Balance 70 ml -570 ml Intake Oral 720 ml 350 ml IV Total 880 ml Output Urine Total 650 ml 1800 ml # Voids 3 Dressing: dry Wound: clean, intact Drains: none Cardiovascular: RSR Abdomen: soft, flat, scaphoid, tenderness, present bowel sounds Extremities: no edema, no tenderness, no cyanosis Laboratory Tests Test 01/09/19 05:25 White Blood Count 9.5 K/UL (4.8-10.8) Red Blood Count 4.12 M/UL (4.20-5.40) L Hemoglobin 9.9 G/DL (12.0-16.0) L Hematocrit 31.6 % (37.0-47.0) L Mean Corpuscular Volume 77 FL (80-99) L Mean Corpuscular Hemoglobin 23.9 PG (27.0-31.0) L Mean Corpuscular Hemoglobin Concent 31.2 G/DL (32.0-36.0) L Red Cell Distribution Width 20.0 % (11.6-14.8) H Platelet Count 346 K/UL (150-450) Mean Platelet Volume 5.1 FL (6.5-10.1) L Neutrophils (%) (Auto) 65.4 % (45.0-75.0) Lymphocytes (%) (Auto) 27.2 % (20.0-45.0) Monocytes (%) (Auto) 6.2 % (1.0-10.0) Eosinophils (%) (Auto) 0.6 % (0.0-3.0) Basophils (%) (Auto) 0.7 % (0.0-2.0) Sodium Level 140 MMOL/L (136-145) Potassium Level 3.7 MMOL/L (3.5-5.1) Chloride Level 106 MMOL/L (98-107) Carbon Dioxide Level 28 MMOL/L (21-32) Anion Gap 6 mmol/L (5-15) Blood Urea Nitrogen 3 mg/dL (7-18) L Creatinine 0.9 MG/DL (0.55-1.30) Estimat Glomerular Filtration Rate > 60 mL/min (>60) Glucose Level 104 MG/DL (74-106) Calcium Level 8.9 MG/DL (8.5-10.1) Total Bilirubin 0.3 MG/DL (0.2-1.0) Aspartate Amino Transf (AST/SGOT) 21 U/L (15-37) Alanine Aminotransferase (ALT/SGPT) 16 U/L (12-78) Alkaline Phosphatase 157 U/L (46-116) H Total Protein 5.9 G/DL (6.4-8.2) L Albumin 2.0 G/DL (3.4-5.0) L Globulin 3.9 g/dL Albumin/Globulin Ratio 0.5 (1.0-2.7) L Additional Comments leukocytosis resolving, labs stable Plan Additional Comments pain controlled on oral medication. ambulating well. probable am discharge, discussed w amada epps and Agus Rocha MD Jan 09, 2019 16:21
--- NOTE | 2019-01-09 17:23 | NUR ---
CASE MANAGEMENT: REVIEW SI: NECROTIC PROLAPSING MYOMA . ABD PAIN TOTAL HYSTERECTOMY . EX-LAPAROTOMY w/OPEN LYSIS OF ADHESIONS 01/07 T 98.4 HR 55 RR 20 BP 142/90 SAT 97% ROOM AIR H/H 9.9/31.6 ALK PHOS 157 IS: DILAUDID 2MG SUBQ Q3HR PRN COLACE PO BID MYLANTA PO Q6HR MED/SURG STATUS DCP: PATIENT IS FROM HOME
[2019-01-09] MEDS: Milk of Magnesia 30ml Ud ORAL PRN (19:01)
--- NOTE | 2019-01-09 19:30 | NUR ---
HAND-OFF: Report given to Moriaho RN. Patient is in stable condition.
[2019-01-09 20:00] VITALS: BP 125/69
--- NOTE | 2019-01-09 20:00 | NUR ---
NURSE NOTES: Receive a report from JEFF Phillips. Done rounds. Pt is awake and alert. No acute distress noted. Discharge planning tomorrow. Op site is open without any dressing with melvin and clear. Lower abdomen site pain is tolerating with oral pain medication. Leave call light within reach. Will continue to monitor.
--- NOTE | 2019-01-09 20:30 | NUR ---
NURSE NOTES: Pt is asleep but easily aroused by calling her name but noted disorientation x 1. Pt is currently on RN RESEARCH pump. v/s: 86/94-005-60-93% in RA, PA 10/16. No dizziness noted. Op site dressing clean and dry. Op site dressing has been undone so reinforced with ABD with tape. NPO except ice chips and medication. IV fluids running via PICC. Elevated both legs and recheck BP: 90/53mmHg. Noted 4 extremities involuntary movement. Apply O2 3L NC and keep monitoring Spo2. Spo2 raises up to 97% quickly. Lung sound clear bilateral without congestion. Rocha catheter inserted state and concentrated urine drained. G-tube and ileostomy natural drained with NS 20ml irrigation q 3hrs. Yellowish with blood tinged gastric juice drained via G-tube and thick greenish drainage via ileostomy. Call Dr. Pineda. Will continue to monitor. Addendum: 01/10/19 at 0840 by Meg Mchugh RN INCORRECT PT's CHARTING
--- NOTE | 2019-01-09 20:35 | NUR ---
NURSE NOTES: Receive a call from Dr. Pineda and update pt's conditions. Receive orders to discontinue MANAGER COLLECTION pump and QHS medication. Another 0.9% NS 500ml 1 bag 100ml/hr IV with 5D1/2NS+KCL 20 125ml/hr via PICC. Keep Toradol 30mg IVP q 6hrs for breakthrough pain control and keep O2 3L NC with monitoring. Order noted and carried out. Relay to Dr. Pineda about pt's past experiences of disorientation and respiratory depression from pain medication by 's remark. Will continue to monitor. Pt made aware. Addendum: 01/10/19 at 0843 by Meg Mchugh RN INCORRECT CHARTING
--- NOTE | 2019-01-09 23:00 | NUR ---
NURSE NOTES: Pt wants to ambulate the unit. Done ambulation with staff members. Recover her orientations. v/s stable as 119/61-98-16-97% O2 3L NC. No dizziness noted but nausea sensation. After ambulation, pt complains for op site pain. Administer prn pain medication with Zofran 4mg IVP. Keep dry and clean on Op site dressing. SCDs on bilaterally. On bed alarm. Will continue to monitor with O2 3L NC. Addendum: 01/10/19 at 0844 by Meg Mchugh RN INCORRECT CHARTING
[2019-01-10 00:15] VITALS: BP 160/91
[2019-01-10] MEDS: HYDROcodone/Acetamin 10/325 tab ORAL PRN ×3 (00:34→12:43)
--- NOTE | 2019-01-10 04:30 | NUR ---
NURSE NOTES: Pt is crying for pain, 11/16. Alert and orientation x 4. Provide prn Toradol 30mg IVP to control pain. Reapply O2 3L NC with spo2 monitoring, 97%. Urine draining well with yellowish color. Will continue to monitor. Addendum: 01/10/19 at 0845 by Meg Mchugh RN INCORRECT CHARTING
[2019-01-10 04:50] VITALS: BP 162/84
[2019-01-10 05:26] LABS: EOSINOPHILS % (AUTO) 1.6 % (0.0-3.0); HEMATOCRIT 31.7 % (37.0-47.0); HEMOGLOBIN 10.1 G/DL (12.0-16.0); LYMPHOCYTES % (AUTO) 19.6 % (20.0-45.0); MEAN CORPUSCULAR VOLUME 76 FL (80-99); MONOCYTES % (AUTO) 14.8 % (1.0-10.0); NEUTROPHILS % (AUTO) 62.1 % (45.0-75.0); PLATELET COUNT 372 K/UL (150-450); RED BLOOD COUNT 4.18 M/UL (4.20-5.40); RED CELL DISTRIBUTION WIDTH 20.2 % (11.6-14.8); WHITE BLOOD COUNT 7.6 K/UL (4.8-10.8)
[2019-01-10 05:45] LABS: ALANINE AMINOTRANSFERASE 19 U/L (12-78); ALBUMIN 2.1 G/DL (3.4-5.0); ALBUMIN/GLOBULIN RATIO 0.5 (1.0-2.7); ALKALINE PHOSPHATASE 152 U/L (46-116); ANION GAP 5 mmol/L (5-15); ASPARTATE AMINO TRANSFERASE 22 U/L (15-37); BILIRUBIN,TOTAL 0.3 MG/DL (0.2-1.0); BLOOD UREA NITROGEN 7 mg/dL (7-18); CARBON DIOXIDE 32 MMOL/L (21-32); CHLORIDE 104 MMOL/L (98-107); CREATININE 0.9 MG/DL (0.55-1.30); SODIUM 141 MMOL/L (136-145)
--- NOTE | 2019-01-10 07:30 | NUR ---
NURSE NOTES: Received report from Gho RN. Patient is asleep during rounds, no acute distress noted, RR even and unlabored. SCD's on. Side rails upx2, bed low and locked, call light in reach. Will continue to monitor.
--- NOTE | 2019-01-10 07:30 | NUR ---
HAND-OFF: Report given to JEFF Phillips. Done rounds.
[2019-01-10 08:00] VITALS: BP 164/93
--- NOTE | 2019-01-10 08:11 | Pulmonology Progress Note ---
Assessment/Plan Assessment/Plan 1. Sepsis due to pelvic infection, resolved 2. Status post uterine artery embolization for leiomyoma uteri. 3. Hypertension, controlled. 4. Anemia. 5. Hypokalemia. 6. History of stroke. doign well source of infection gone; afebrile off abx dc plannign for today BP controlled cont post op care Subjective Constitutional: Reports: no symptoms HEENT: Repors: no symptoms Respiratory: Reports: no symptoms Cardiovascular: Reports: no symptoms Gastrointestinal/Abdominal: Reports: no symptoms Genitourinary: Reports: no symptoms Neurologic: Reports: no symptoms Allergies: Coded Allergies: No Known Allergies (Unverified , 01/04/19) Subjective doign well pain controlled wiht oral meds oob tolerating po no fever Objective Last 24 Hour Vital Signs Date Time Temp Pulse Resp B/P (MAP) Pulse Ox O2 Delivery O2 Flow Rate FiO2 01/10/19 00:15 98.9 50 18 160/91 (114) 97 01/09/19 21:00 Room Air 01/09/19 20:57 125/69 01/09/19 20:00 97.7 54 18 125/69 (87) 97 01/09/19 16:00 98.2 55 18 142/78 (99) 97 01/09/19 12:00 98.4 58 20 142/90 (107) 98 01/09/19 09:31 130/80 01/09/19 09:28 60 01/09/19 09:00 Room Air Intake and Output 01/09/19 01/10/19 18:59 06:59 Intake Total 775 ml Balance 775 ml Intake Oral 400 ml IV Total 375 ml # Voids 2 General Appearance: WD/WN Respiratory/Chest: lungs clear Cardiovascular: normal rate Abdomen: no organomegaly, non distended Neurologic/Psychiatric: alert, oriented x 3, responsive Microbiology Date/Time Source Procedure Growth Status 01/07/19 09:30 Abdominal Cavity Gram Stain - Final Resulted 01/07/19 09:30 Abdominal Cavity Aerobic Culture - Preliminary NO GROWTH Resulted 01/07/19 09:30 Abdominal Cavity Anaerobic Culture - Preliminary NO ANAEROBES ISOLATED Resulted Laboratory Tests 01/10/19 05:10: White Blood Count 7.6, Red Blood Count 4.18L, Hemoglobin 10.1L, Hematocrit 31.7L , Mean Corpuscular Volume 76L, Mean Corpuscular Hemoglobin 24.1L, Mean Corpuscular Hemoglobin Concent 31.8L, Red Cell Distribution Width 20.2H, Platelet Count 372, Mean Platelet Volume 5.1L, Neutrophils (%) (Auto) 62.1, Lymphocytes (%) (Auto) 19.6L, Monocytes (%) (Auto) 14.8H, Eosinophils (%) (Auto ) 1.6, Basophils (%) (Auto) 2.0, Sodium Level 141, Potassium Level 4.0, Chloride Level 104, Carbon Dioxide Level 32, Anion Gap 5, Blood Urea Nitrogen 7 , Creatinine 0.9, Estimat Glomerular Filtration Rate > 60, Glucose Level 93, Calcium Level 9.0, Total Bilirubin 0.3, Aspartate Amino Transf (AST/SGOT) 22, Alanine Aminotransferase (ALT/SGPT) 19, Alkaline Phosphatase 152H, Total Protein 6.3L, Albumin 2.1L, Globulin 4.2, Albumin/Globulin Ratio 0.5L Current Medications Medications (Trade) Dose Ordered Sig/Fuad Route PRN Reason Start Time Stop Time Status Last Admin Dose Admin Acetaminophen (Tylenol) 650 mg Q4H PRN ORAL Temp > 100.5 01/07/19 10:45 02/04/19 03:59 Acetaminophen (Tylenol) 650 mg Q6H PRN ORAL Mild Pain (Pain Scale 1-3) 01/07/19 09:45 02/06/19 09:44 Acetaminophen/ Hydrocodone Bitart ([place] 10/325) 1 tab Q3H PRN ORAL Pain Scale (6-10) 01/08/19 18:00 01/15/19 17:59 01/10/19 00:34 Al Hydroxide/Mg Hydroxide (Mylanta) 15 ml Q6H PRN ORAL DYSPEPSIA 01/07/19 09:45 02/06/19 09:44 01/09/19 05:55 Clonidine HCl (Catapres tab) 0.2 mg Q12HR ORAL 01/07/19 21:00 02/06/19 20:59 01/09/19 20:57 Diphenhydramine HCl (Benadryl) 25 mg Q8H PRN ORAL Itching/Pruritis 01/07/19 09:45 02/06/19 09:44 Docusate Sodium (Colace) 100 mg TWICE A DAY ORAL 01/07/19 18:00 02/06/19 17:59 01/09/19 19:00 Hydromorphone HCl (Dilaudid) 2 mg Q3H PRN SUBQ Severe Breakthru Pain (>7) 01/09/19 11:15 01/16/19 11:14 01/10/19 02:55 Magnesium Hydroxide (Mom) 30 ml BIDPRN PRN ORAL Constipation 01/07/19 09:45 02/06/19 09:44 01/09/19 19:01 Temazepam (Restoril) 7.5 mg DAILYPRN PRN ORAL Insomnia 01/07/19 09:45 01/14/19 09:44 Coco Fabian DO Jan 10, 2019 08:11
[2019-01-10] MEDS: Docusate 100mg cap ORAL SCH ×2 (09:19→17:16)
[2019-01-10] MEDS: cloNIDine 0.2mg Tab ORAL SCH (09:19)
--- NOTE | 2019-01-10 11:22 | NUR ---
NURSE NOTES: Received discharge order from Dr. Moore, medication reconciliation reviewed with . Patient states she will go once ride arranged.
[2019-01-10] MEDS ORDERED: NORCO 5-325 TA1 EACH ORAL (11:29)
[2019-01-10] MEDS ORDERED: COLACE100 MG ORAL (11:29)
[2019-01-10 12:00] VITALS: BP 156/91
[2019-01-10 16:00] VITALS: BP 157/95
--- NOTE | 2019-01-10 16:03 | NUR ---
PT Note Attempted to see patient x 2 but patient refused, c/o fatigue as she was unable to sleep well last night.
--- NOTE | 2019-01-10 17:28 | NUR ---
CASE MANAGEMENT: REVIEW SI: NECROTIC PROLAPSING MYOMA . ABD PAIN TOTAL HYSTERECTOMY . EX-LAPAROTOMY w/OPEN LYSIS OF ADHESIONS 01/07 T 98.2 HR 50 RR 18 BP 162/84 SAT 97% ROOM AIR H/H 10.1/31.7 ALK PHOS 152 IS: DILAUDID 2MG SUBQ Q3HR PRN COLACE PO BID MYLANTA PO Q6HR MED/SURG STATUS DCP: PATIENT IS FROM HOME
--- NOTE | 2019-01-10 18:37 | NUR ---
NURSE NOTES: Patient discharged with no acute distress and pain well managed. Patient provided with Rx and discharge instructions/handouts. Reviewed discharge education with patient and patient reports understanding of provided education. Counseled patient on new prescriptions and instructed patient to follow up with Dr. Salgado as directed. Patient escorted off unit by TIN WORKER to private vehicle accompanied by patient's sister who will drive patient home.
--- NOTE | 2019-01-11 10:42 | Discharge Summary ---
Discharge Summary Discharge Summary _ DATE OF ADMISSION: 01/05/2019 DATE OF DISCHARGE: 01/10/2019 DISCHARGED BY: Dr. Salazar REASON FOR ADMISSION: 48 years old female with past medical history of CVA due to cerebral aneurysm, status post coil placement, no deficit, hypertension, anxiety, arthritis, multiple large fibroid uterus, status post uterine artery embolization on 2018, presented with complaint of pelvic pain and increased vaginal discharge. Vaginal discharge described as brown in color and malodorous. Patient reported subjective fevers. Pain reported as 10 out of 10 , worse with movement. No urinary complaints. Upon evaluation vital signs were stable. Laboratory work-up revealed leukocytosis WBC 18.4, hemoglobin 8.2, hematocrit 25.8. Potassium 3.4. CT of the abdomen and pelvis demonstrated signs of recent uterine fibroid embolization . No evidence of extrauterine free air or abscess. Hiatal hernia. Gallstones CONSULTANTS: general surgery Dr. Moore RESIDENT CARE ASSISTANT surgeon Dr. Salgado [facility]RSE: Patient admitted to medical surgical floor. RESIDENT CARE ASSISTANT and general surgeons followed. Patient was kept n.p.o. , started on the IV fluids and IV antibiotic. On WBC up to 21.8, patient febrile. Potassium 2.9 , was replaced. Per RESIDENT CARE ASSISTANT, patient clinically had prolapsing leiomyoma. Patient subsequently undergone on 01/07 expiratory laparotomy, open lysis of adhesions, total abdominal hysterectomy, bilateral salpingo-oophorectomy. Postoperative course of recovery was uneventful. Pain management was addressed. Patient slowly started on diet and was able to tolerate it. Blood culture were negative. Peritoneal fluid revealed no evidence of growth. Leukocytosis resolved. No fevers. Antibiotics stopped as source of infection was resected. Hemoglobin and hematocrit were closely monitored with goal to keep hemoglobin above 7. Anemia improved ; hemoglobin 10.1 and hematocrit 31.7 prior to discharge. Patient voided without difficulty. Patient ambulated in hallway. Bowel regimen instituted. Patient had bowel movement. Pain was controlled. Blood pressure was closely monitored, remained stable. Patient was stable for discharge home. FINAL DIAGNOSES: Sepsis due to pelvic infection, resolved Necrotic/infarcted prolapsing leiomyoma Pelvic adhesions Status post exploratory laparotomy, open lysis of adhesion, total abdominal hysterectomy and bilateral salpingo-oophorectomy History of recent uterine artery embolization Hypertension Anemia Hypokalemia History of stroke DISCHARGE MEDICATIONS: See Medication Reconciliation list. DISCHARGE INSTRUCTIONS: Patient was discharged home . Follow-up with a surgeon as outpatient as advised by surgeon. Follow up with primary care provider in one week. I have been assigned to dictate discharge summary for this account. I was not involved in the patient's management. Eleni Berkowitz NP Jan 11, 2019 10:42
== END 2019-01-10 18:46 | disposition home or self-care (01) | DRG 854 ==
LOC: EMR 23:30 → 3E 01-05 01:21 → EDBEDREQ 01-05 03:24 → 3E 01-05 04:53
PROC: 0UT70ZZ Resection of Bilateral Fallopian Tubes, Open Approach (ICD-10-PCS; principal; 2019-01-07 07:30)
PROC: 0UT20ZZ Resection of Bilateral Ovaries, Open Approach (ICD-10-PCS; principal; 2019-01-07 07:30)
PROC: 0DNW0ZZ Release Peritoneum, Open Approach (ICD-10-PCS; principal; 2019-01-07 07:30)
PROC: 0UT90ZZ Resection of Uterus, Open Approach (ICD-10-PCS; principal; 2019-01-07 07:30)
DX: A41.9 Sepsis, unspecified organism (principal); N71.0 Acute inflammatory disease of uterus; Z86.73 Personal history of transient ischemic attack (TIA), and cerebral infarction without residual deficits; Z87.891 Personal history of nicotine dependence; D25.9 Leiomyoma of uterus, unspecified; N73.6 Female pelvic peritoneal adhesions (postinfective); I10 Essential (primary) hypertension; D64.9 Anemia, unspecified; K44.9 Diaphragmatic hernia without obstruction or gangrene; K80.80 Other cholelithiasis without obstruction
CPT/HCPCS: 36415; 71045; 74176; 80048; 80053; 80202; 82248; 85007; 85025; 85610; 85730; 86850; 86900; 86901; 86920; 87040; 87070; 87075; 87205; 93005; 94003; 94150; 96361; 96365; 96375; 99285; J2250; J2405; J2765; J8499

== ENCOUNTER 2019-01-18 19:31 | Emergency (ER) | payer BC ==
[~2019-01-18] VITALS: Ht 172.7 cm; Wt 67.1 kg
[~2019-01-18 19:31] MED LIST: CATAPRES0.1 MG ORAL; COLACE100 MG ORAL; GABAPENTIN600 MG ORAL; HYDROCHLOROTHIA25 MG ORAL; NORCO 5-325 TA1 EACH ORAL; QUETIAPINE FUM100 MG ORAL
[2019-01-18 19:35] VITALS: BP 142/106
--- NOTE | 2019-01-18 19:35 | NUR ---
ED Nurse Note: patient ambulated to ed c/o post op complications x4 days. pt recently underwent [place]07 [place] [facility] [place] pt reports leakage from incision and pain
[2019-01-18] MEDS ORDERED: CARVEDILOL3.125 MG ORAL (19:39)
[2019-01-18] MEDS ORDERED: AMLODIPINE BES2.5 MG ORAL (19:39)
--- NOTE | 2019-01-18 20:13 | Emergency Room Report ---
History of Present Illness General Chief Complaint: Pelvic Pain Source: Patient Present Illness HPI Disclaimer: Please note that this report is being documented using Desktime technology. This can lead to erroneous entry secondary to incorrect interpretation by the dictating instrument. HPI: 48-year-old female with recent hysterectomy presents for evaluation of wound check. Patient underwent hysterectomy 4 days ago and has been overall doing very well. She has noticed some serous fluid leaking from her incision site as well as a swelling at the bottom of the vertical excision in the lower pelvis. She otherwise denies any erythema, purulent drainage, bleeding or wound dehiscence. She denies fever, chills, chest pain, shortness of breath, neck or back pain, new rash, vomiting, diarrhea, dysuria or any other change in her health. She was told to come to the emergency department for evaluation by her surgeon. PMH: CVA due to cerebral aneurysm, status post coil placement, no deficit, hypertension, anxiety, arthritis, multiple large fibroid uterus, status post uterine artery embolization on 12/15/2018 PSH: Cerebral artery coiling, uterine artery embolization, hysterectomy Allergies: Denies Social Hx: Denies drug or alcohol abuse Allergies: Coded Allergies: No Known Allergies (Unverified , 01/04/19) Patient History Now: No Nursing Documentation-PMH Past Medical History: No History, Except For Hx Cardiac Problems: Yes - arthritis Hx Hypertension: Yes Hx Cancer: No Hx Gastrointestinal Problems: No Hx Neurological Problems: Yes Hx Cerebrovascular Accident: Yes - september 2014 Hx Transient Ischemic Attacks: No Hx Dementia: No Hx Alzheimer's Disease: No Hx Parkinson's Disease: No Hx Fatigue: Yes Hx Neurologic Surgery: No Hx Brain Shunt: No Review of Systems All Other Systems: negative except mentioned in HPI Physical Exam Vital Signs Date Time Temp Pulse Resp B/P (MAP) Pulse Ox O2 Delivery O2 Flow Rate FiO2 01/18/19 19:33 97.9 70 14 142/106 (118) 99 Room Air General: Awake and alert, no acute distress HEENT: NC/AT. EOMI. Cardiovascular: RRR. S1 and S2 normal. No murmur appreciated Resp: Normal work of breathing. No cough, wheezing or crackles appreciated Abdomen: Abdomen is soft, nondistended. Nontender. No mass, surgical site is clean dry and intact Skin: Midline surgical incision is clean dry and intact. No obvious erythema, no drainage, no bleeding, no dehiscence. Mild tenderness at the base just above the pubis. MSK: Normal tone and bulk. Moving all extremities. No obvious deformity. Neuro: Awake and alert. Mentating appropriately. Medical Decision Making Diagnostic Impression: Primary Impression: Seroma ER Course 48-year-old female presents for evaluation of her surgical wound after hysterectomy 4 days ago. Overall, she is well-appearing, nontoxic and the wound is clean dry and intact. No obvious signs of infection or other major pathology. Her surgeon is going to come evaluate her and provide further recommendations. Last Vital Signs Date Time Temp Pulse Resp B/P (MAP) Pulse Ox O2 Delivery O2 Flow Rate FiO2 01/18/19 19:35 97.9 70 14 142/106 99 Room Air Reevaluation Impression Patient was evaluated by Dr. Moore. A small seroma was drained and the patient can be discharged home. He has established follow-up with her this week in his clinic for reevaluation. We discussed return precautions. No new medications started. Patient will be discharged home with outpatient follow-up. Disposition: HOME, SELF-CARE Condition: Improved Mayank Titus MD Jan 18, 2019 20:13
--- NOTE | 2019-01-18 20:15 | NUR ---
ED Nurse Note: DR. BEAR AT BEDSIDE
--- NOTE | 2019-01-18 20:41 | Consultation ---
History of Present Illness General Date patient seen: Jan 18, 2019 Reason for Hospitalization: Pelvic Pain Present Illness HPI This is a 48-year-old female known to me from recent admission and hysterectomy. Patient underwent hysterectomy about a week ago and has been overall doing very well. Saw her Primary surgeon for post op a few days ago and melvin removed. was doing well but noticed some serous fluid leaking from her incision site today from the vertical excision. She otherwise denies any erythema, purulent drainage, bleeding or wound dehiscence. She denies fever, chills, chest pain, shortness of breath, neck or back pain, new rash, vomiting, diarrhea, dysuria or any other change in her health. She was referred to me for evaluation of drainage and consideration for possible infection or etc. unfortunately I did not have office hours today and advised that if needed to be seen urgently given concerns for infection to come to ED. patient came and I was called to evaluate. Allergies: Coded Allergies: No Known Allergies (Unverified , 01/04/19) Medication History Scheduled Amlodipine Besylate* (Amlodipine Besylate*), Unknown Dose ORAL DAILY, (Reported) Carvedilol* (Carvedilol*), Unknown Dose ORAL EVERY 12 HOURS, (Reported) Clonidine Hcl* (Catapres*), 0.3 MG ORAL HS, (Reported) Docusate Sodium* (Colace*), 100 MG ORAL TWICE A DAY, (Reported) Gabapentin* (Gabapentin*), 600 MG ORAL THREE TIMES A DAY, (Reported) Hydrochlorothiazide* (Hydrochlorothiazide*), 25 MG ORAL DAILY, (Reported) Quetiapine Fumarate* (Seroquel*), 100 MG ORAL HS, (Reported) Scheduled PRN Hydrocodone Bit/Acetaminophen 5-325* ([place]ley 5-325*), 1 TAB ORAL Q4H PRN for For Pain, (Reported) Patient History History Provided By: Patient, Medical Record, PMD Healthcare decision maker Resuscitation status Advanced Directive on File Past Medical/Surgical History Past Medical/Surgical History: (1) Fever (2) Leukocytosis (3) Abdominal pain Review of Systems Review of Symptoms General ROS: no weight loss or fever Psychological ROS: no depression or mood changes, no memory loss Ophthalmic ROS: no visual changes or eye irritation ENT ROS: no nasal congestion, hearing loss, dizziness Allergy and Immunology ROS: no allergic symptoms or urticaria Hematological and Lymphatic ROS: no swollen glands, unusual bleeding or bruising Endocrine ROS: no polyuria, polydipsia, weight changes, temperature intolerance Respiratory ROS: no cough, shortness of breath, or wheezing Cardiovascular ROS: no chest pain or dyspnea on exertion Gastrointestinal ROS: denies abdominal pain, no bright red blood in stool. Musculoskeletal ROS: no myalgias or arthralgias Neurological ROS: no TIA or stroke symptoms Dermatological ROS: no new or changing skin lesions, rashes or pruritis Physical Exam Physical Exam General appearance: alert, cooperative, no distress, appears stated age Head: Normocephalic, without obvious abnormality, atraumatic Eyes: conjunctivae/corneas clear. PERRL, EOM's intact. Fundi benign Throat: Lips, mucosa, and tongue normal. Teeth and gums normal Neck: supple, symmetrical, trachea midline, no adenopathy, thyroid: not enlarged, symmetric, no tenderness/mass/nodules, no carotid bruit and no JVD Lungs: clear to auscultation bilaterally Heart: regular rate and rhythm, S1, S2 normal, no murmur, click, rub or gallop Abdomen: soft, non-tender. Bowel sounds normal. No masses, no organomegaly Extremities: extremities normal, atraumatic, no cyanosis or edema Pulses: 2+ and symmetric Skin: Skin color, texture, turgor normal. No rashes or lesions Neurologic: Grossly normal Last 24 Hour Vital Signs Date Time Temp Pulse Resp B/P (MAP) Pulse Ox O2 Delivery O2 Flow Rate FiO2 01/18/19 19:35 97.9 70 14 142/106 99 Room Air 01/18/19 19:33 97.9 70 14 142/106 (118) 99 Room Air Height (Feet): 5 Height (Inches): 8.00 Weight (Pounds): 148 Assessment/Plan Problem List: (1) Seroma after procedure SNOMED: [id number] (2) Draining postoperative wound Assessment & Plan: Patient seen in ED. midline wound looks great. after mild manipulation noted drainage from superior aspect of midline incision. further inspection identified a small seroma. drained at bedside. fluid clear serous yellow without signs of infection. seroma drained through 1cm opening made. packing and dressing placed. instructions given to patient and family as well as supplies. okay to d/c home no need for abx as seroma packing and dressing BID okay to shower f/u with me Friday for wound check. f/u info given to patient thank you ICD Codes: T81.89XA - Other complications of procedures, not elsewhere classified, initial encounter SNOMED: [id number], [id number] Jaden Moore Jan 18, 2019 20:41
--- NOTE | 2019-01-18 20:50 | NUR ---
ER DISCHARGE NOTE: Patient is cleared to be discharged per ERMD, pt is aox4, on room air, with stable vital signs. pt was given dc and prescription instructions, pt was able to verbalize understanding, pt id band removed. pt is able to ambulate with steady gait. pt took all belongings.
[2019-01-18 20:51] VITALS: BP 137/99
== END 2019-01-18 20:50 | disposition home or self-care (01) ==
LOC: EMR 20:00
DX: L76.34 Postprocedural seroma of skin and subcutaneous tissue following other procedure (principal); Z90.710 Acquired absence of both cervix and uterus; I10 Essential (primary) hypertension; M19.90 Unspecified osteoarthritis, unspecified site; Z86.73 Personal history of transient ischemic attack (TIA), and cerebral infarction without residual deficits
CPT/HCPCS: 99283